=== PATIENT | male | born 1960 | race Caucasian/White ===

== ENCOUNTER 2021-06-20 17:47 | Inpatient (IN) ==
[~2021-06-20 17:47] MED LIST: NICOTINE 14 MG/24 HR PATCH TD SCH
[2021-06-20] MEDS ORDERED: MoRPHine SULFATE 4 MG/ML 1 ML CARP\\VIAL IV STA ×3 (18:02→21:09)
[2021-06-20] MEDS ORDERED: ONDANSETRON INJ 2 MG/ML 2 ML VIAL IV STA (18:02)
[2021-06-20] MEDS ORDERED: SODIUM CHLORIDE 0.9% 1000ML 1,000 ML IV STA (18:02)
[2021-06-20] MEDS ORDERED: KETOROLAC TROMETHAMINE 15 MG/ML VIAL IV STA (18:02)
--- NOTE | 2021-06-20 18:06 | Emergency Department Note ---
Impression & Plan Renal colic on left side, SARABJIT (acute kidney injury) ED Provider Note Provider: Reddy Hawk MD DATE OF SERVICE: 06/20/2021 CHIEF COMPLAINT: kidney stone, not urinating HISTORY OF PRESENT ILLNESS: Patient is a 60-year-old gentleman history of hypertension and prior kidney stone presenting here today reporting that he was diagnosed with a left-sided kidney stone yesterday. At home has had a fair amount of nausea as well as some pain in the left lower black region continue. CT feels a bit bloated in the upper abdomen like he is not making a good amount of urine although he has been drinking. No fevers reported or other trauma. No significant anterior abdominal pain or suprapubic fullness reported. Patient does not report any gross hematuria. No Tylenol or NSAID today but took oxycodone 3 minutes prior to arrival with improvement of his pain. REVIEW OF SYSTEMS: A total of 10 review of systems was obtained and negative except as stated above in the HPI. PAST MEDICAL HISTORY: As noted above SOCIAL HISTORY: Lives at home, denies currently smoking PHYSICAL EXAM: GENERAL: alert and oriented in no acute distress on stretcher Head: normocephalic and atraumatic EYES: No injection, discharge or icterus. NECK: Trachea midline. LUNGS: Airway patent. No retractions. Breath sounds clear HEART: Regular rate and rhythm. No chest wall tenderness ABDOMEN: Soft and non-tender, without guarding or rebound. SKIN: Acyanotic, warm, dry, without rashes EXTREMITIES: Without swelling, tenderness or deformity NEUROLOGICAL: No focal deficits. No aphasia. No facial droop or slurred speech. Ambulatory. CONTINUOUS CARDIAC MONITORING: was ordered and showed a heart rate of 70s-90s bpm in normal sinus rhythm PDMP was checked without noted issue. Patient's laboratory studies and imaging reviewed. Differential includes Renal colic, UTI, appendicitis, diverticulitis, mesenteric ischemia, aortic pathology, infections, inflammatory bowel disease, PUD, biliary pathology, as well as other pathologies. IMPRESSION/MEDICAL DECISION MAKING: Evaluation 5 mm left-sided kidney stone yesterday. Patient complains of decreased urine output and fullness the abdomen probably upper however. Patient does not appear toxic. Given some antiemetics as well as additional pain medication here. Will complete ultrasound to look for any signs of urinary retention or other findings concerning for bilateral hydronephrosis. Basic labs were sent. Labs here with slightly increased leukocytosis and slightly worsened hyponatremia. Renal function also appears to have a slightly increased elevate creatinine 1.59. No evidence of hepatitis or pancreatitis based on labs. No severe BUN elevation. Ultrasound report moderate left hydronephrosis but no right-sided hydronephrosis. Patient required additional IV morphine for pain control. Urine sample not indicative of infection. We will hold off on antibiotics at this point. Given his significant pain however as well as the slightly worsened renal function believe further observation here overnight for possible urological consultation if continued symptoms or worsening renal function tomorrow would be reasonable. Hospitalist was contacted. Urology was consulted. DIAGNOSIS: Left-sided kidney stone, SARABJIT DISPOSITION: Hospitalist will evaluate Patient was agreeable with this plan. Past Med/Surg History Medical History High cholesterol HTN (hypertension), benign Surgical History History of lumbar fusion Family History Mother Hypertension Father Heart disease Social History Smoking Status: Heavy tobacco smoker Tobacco Type: Cigarettes Do You Dip or Chew Tobacco: No; Tobacco Cessation Education Requested by Patient: No Hx Alcohol Use: Yes Alcohol type: hard liquor Hx Substance Use: No Preferred Language: Irish Communication Ability: Effective Visual Impairment: No Limitations Hearing Ability: Normal Cultural Historian Required: No Beliefs That Will Affect Care: None marital status: Current Living Situation: Alone current occupational status: employed current occupation: [employer] Feels Safe at Home: Yes Safety Concerns: Feels Safe At This Time Assistive Devices: Glasses Assistive Devices Comment: reading glasses Allergies Allergies Allergy/AdvReac Type Severity Reaction Status Date / Time No Known Allergies Allergy Verified 06/20/21 18:13 Home Meds Home Medications Medication Instructions Recorded Confirmed atorvastatin 20 mg tablet 20 mg PO DAILY 11/17/20 06/20/21 lisinopril 10 1 tab PO DAILY 11/17/20 06/20/21 mg-hydrochlorothiazide 12.5 mg tablet escitalopram oxalate 10 mg tablet 10 mg PO QAM 06/20/21 06/20/21 Previous Rx's Medication Instructions Recorded oxycodone 5 mg tablet 5 mg PO Q6 PRN #12 tab 06/19/21 tamsulosin 0.4 mg capsule (Flomax) 0.4 mg PO DAILY #10 cap 06/19/21 Results & Data (ED) Vital Signs Vital Signs - 24 hr 06/20/21 17:51 06/20/21 18:33 Temperature 36.6 C Temperature Source Temporal Artery Scan Pulse Rate 79 Pulse Rate [Apical] 67 Respiratory Rate 20 18 Respiratory Effort / Characteristics Non-Labored Spontaneous Non-Labored Spontaneous Respiratory Depth Normal Normal Respiratory Pattern Regular Blood Pressure 107/69 Blood Pressure [Right Arm] 117/76 Blood Pressure Mean 81 Blood Pressure Mean [Right Arm] 89 Blood Pressure Position [Right Arm] Sitting Pulse Oximetry 94 92 Oxygen Delivery Method Room Air Room Air Sepsis Recent Fever Within 48 Hours No Sepsis New/Unexplained Change in Mental Status No Sepsis Action Taken by Nursing No Action Required Laboratory Data Result diagrams: 06/20/21 18:28 06/20/21 23:33 Lab Results 06/20/21 06/20/21 06/20/21 Range/Units 18:28 18:28 18:28 WBC 14.72 H (4.8-10.8) K/uL RBC 5.35 (4.7-6.1) M/uL Hgb 15.5 (14.0-18.0) g/dL Hct 44.7 (42-52) % MCV 83.6 (80-100) fL MCH 29.0 (25-34) pg MCHC 34.7 (32-36) g/dL RDW Std Deviation 46.3 (36.4-46.3) fL RDW Coeff of Sandro 15.2 H (11.5-14.5) % Plt Count 224 (130-400) K/uL MPV 11.1 H (7.4-10.4) fL Immature Gran % (Auto) 0.2 % Neut % (Auto) 81.2 % Lymph % (Auto) 10.4 % Ponce % (Auto) 6.9 % Eos % (Auto) 1.2 % Baso % (Auto) 0.1 % Neut # (Auto) 11.94 H (1.4-6.5) K/uL Lymph # (Auto) 1.53 (1.2-3.4) K/uL Ponce # (Auto) 1.02 H (0.11-0.59) K/uL Eos # (Auto) 0.18 (0-0.5) K/uL Baso # (Auto) 0.02 (0-0.2) K/uL Immature Gran # (Auto) 0.03 H (0.00-0.02) K/uL Sodium 131 L (136-145) mmol/L Potassium 3.5 (3.5-5.1) mmol/L Chloride 97 L (98-107) mmol/L Carbon Dioxide 25 (21-32) mmol/L Anion Gap 9 (3-11) BUN 17 (6-23) mg/dl Creatinine 1.59 H D (0.6-1.4) mg/dl Est Cr Clr Drug Dosing 65.9 ml/min Est GFR ( Amer) 54.6 ml/min Est GFR (Non-Af Amer) 47.2 ml/min BUN/Creatinine Ratio 10.7 (10-20) Glucose 106 H (70-99(Fasting)) mg/dl Osmolality (280-300) mOsm/kg Calcium 9.0 (8.5-10.1) mg/dl Magnesium (1.7-2.4) mg/dl Total Bilirubin 0.9 (0.2-1.0) mg/dl AST 22 (13-39) U/L ALT 19 (7-52) U/L Alkaline Phosphatase 71 (34-104) U/L Total Creatine Kinase (30-223) U/L Total Protein 7.1 (6.0-8.3) gm/dl Albumin 4.1 (3.4-5.0) gm/dl Globulin 3.0 (2.5-4.0) gm/dl Albumin/Globulin Ratio 1.4 (0.9-2) Lipase 37 (11-82) U/L Procalcitonin (0-0.5) ng/ml TSH (0.300-4.500) uIu/ml Urine Color Urine Appearance (Clear) Urine pH (4.5-7.5) Ur Specific [place] (1.000-1.030) Urine Protein (Negative) Urine Glucose (UA) (Negative) Urine Ketones (Negative) Urine Blood (Negative) Urine Nitrite (Negative) Urine Bilirubin (Negative) Urine Urobilinogen (Negative) Ur Leukocyte Esterase (Negative) SARS-CoV-2, RNA, NAAT NEGATIVE (NEGATIVE) 06/20/21 06/20/21 06/20/21 Range/Units 18:28 18:28 18:28 WBC (4.8-10.8) K/uL RBC (4.7-6.1) M/uL Hgb (14.0-18.0) g/dL Hct (42-52) % MCV (80-100) fL MCH (25-34) pg MCHC (32-36) g/dL RDW Std Deviation (36.4-46.3) fL RDW Coeff of Sandro (11.5-14.5) % Plt Count (130-400) K/uL MPV (7.4-10.4) fL Immature Gran % (Auto) % Neut % (Auto) % Lymph % (Auto) % [place]once % (Auto) % Eos % (Auto) % Baso % (Auto) % Neut # (Auto) (1.4-6.5) K/uL Lymph # (Auto) (1.2-3.4) K/uL Ponce # (Auto) (0.11-0.59) K/uL Eos # (Auto) (0-0.5) K/uL Baso # (Auto) (0-0.2) K/uL Immature Gran # (Auto) (0.00-0.02) K/uL Sodium (136-145) mmol/L Potassium (3.5-5.1) mmol/L Chloride (98-107) mmol/L Carbon Dioxide (21-32) mmol/L Anion Gap (3-11) BUN (6-23) mg/dl Creatinine (0.6-1.4) mg/dl Est Cr Clr Drug Dosing ml/min Est GFR ( Amer) ml/min Est GFR (Non-Af Amer) ml/min BUN/Creatinine Ratio (10-20) Glucose (70-99(Fasting)) mg/dl Osmolality 276 L (280-300) mOsm/kg Calcium (8.5-10.1) mg/dl Magnesium 1.6 L (1.7-2.4) mg/dl Total Bilirubin (0.2-1.0) mg/dl AST (13-39) U/L ALT (7-52) U/L Alkaline Phosphatase (34-104) U/L Total Creatine Kinase 162 (30-223) U/L Total Protein (6.0-8.3) gm/dl Albumin (3.4-5.0) gm/dl Globulin (2.5-4.0) gm/dl Albumin/Globulin Ratio (0.9-2) Lipase (11-82) U/L Procalcitonin (0-0.5) ng/ml TSH 0.940 (0.300-4.500) uIu/ml Urine Color Urine Appearance (Clear) Urine pH (4.5-7.5) Ur Specific [place] (1.000-1.030) Urine Protein (Negative) Urine Glucose (UA) (Negative) Urine Ketones (Negative) Urine Blood (Negative) Urine Nitrite (Negative) Urine Bilirubin (Negative) Urine Urobilinogen (Negative) Ur Leukocyte Esterase (Negative) SARS-CoV-2, RNA, NAAT (NEGATIVE) 06/20/21 06/20/21 Range/Units 18:28 19:48 WBC (4.8-10.8) K/uL RBC (4.7-6.1) M/uL Hgb (14.0-18.0) g/dL Hct (42-52) % MCV (80-100) fL MCH (25-34) pg MCHC (32-36) g/dL RDW Std Deviation (36.4-46.3) fL RDW Coeff of Sandro (11.5-14.5) % Plt Count (130-400) K/uL MPV (7.4-10.4) fL Immature Gran % (Auto) % Neut % (Auto) % Lymph % (Auto) % [place]once % (Auto) % Eos % (Auto) % Baso % (Auto) % Neut # (Auto) (1.4-6.5) K/uL Lymph # (Auto) (1.2-3.4) K/uL [place] # (Auto) (0.11-0.59) K/uL Eos # (Auto) (0-0.5) K/uL Baso # (Auto) (0-0.2) K/uL Immature Gran # (Auto) (0.00-0.02) K/uL Sodium (136-145) mmol/L Potassium (3.5-5.1) mmol/L Chloride (98-107) mmol/L Carbon Dioxide (21-32) mmol/L Anion Gap (3-11) BUN (6-23) mg/dl Creatinine (0.6-1.4) mg/dl Est Cr Clr Drug Dosing ml/min Est GFR ( Amer) ml/min Est GFR (Non-Af Amer) ml/min BUN/Creatinine Ratio (10-20) Glucose (70-99(Fasting)) mg/dl Osmolality (280-300) mOsm/kg Calcium (8.5-10.1) mg/dl Magnesium (1.7-2.4) mg/dl Total Bilirubin (0.2-1.0) mg/dl AST (13-39) U/L ALT (7-52) U/L Alkaline Phosphatase (34-104) U/L Total Creatine Kinase (30-223) U/L Total Protein (6.0-8.3) gm/dl Albumin (3.4-5.0) gm/dl Globulin (2.5-4.0) gm/dl Albumin/Globulin Ratio (0.9-2) Lipase (11-82) U/L Procalcitonin 0.12 (0-0.5) ng/ml TSH (0.300-4.500) uIu/ml Urine Color Yellow Urine Appearance Clear (Clear) Urine pH 5.0 (4.5-7.5) Ur Specific [place] 1.019 (1.000-1.030) Urine Protein Negative (Negative) Urine Glucose (UA) Negative (Negative) Urine Ketones Trace H (Negative) Urine Blood Negative (Negative) Urine Nitrite Negative (Negative) Urine Bilirubin Negative (Negative) Urine Urobilinogen Negative (Negative) Ur Leukocyte Esterase Negative (Negative) SARS-CoV-2, RNA, NAAT (NEGATIVE) Administered Medications Heparin Sodium (Porcine) (Heparin Sod 5,000 Unit/0.5 Ml Vial) 5,000 units SQ Q8 SHARI Stop: 07/20/21 22:48 Last Admin: 06/21/21 00:03 Dose: 5,000 units Documented by: [id number] Hydromorphone HCl (Hydromorphone Inj 1 Mg/Ml Syringe) 1 mg IV Q4H PRN PRN Reason: Pain Stop: 07/04/21 21:47 Last Admin: 06/20/21 22:06 Dose: 1 mg Documented by: [id number] Magnesium Sulfate/Dextrose (Magnesium Sulfate / D5w) 1 gm in 100 mls @ 50 mls/hr IV ONE ONE Stop: 06/21/21 01:44 Last Admin: 06/20/21 23:59 Dose: 50 mls/hr Documented by: [id number] Lorazepam (Lorazepam 2 Mg/1 Ml Vial) 0.5 mg IV Q4H PRN PRN Reason: Anxiety Stop: 07/20/21 21:47 Last Admin: 06/21/21 00:17 Dose: 0.5 mg Documented by: [id number] Discontinued Medications Sodium Chloride (Nss 1000ml) 1,000 mls @ 999 mls/hr IV .Q1H1M STA Stop: 06/20/21 19:02 Last Infusion: 06/20/21 20:13 Dose: 0 mls/hr Documented by: [id number] Admin: 06/20/21 18:19 Dose: 999 mls/hr Documented by: [id number] Ketorolac Tromethamine (Ketorolac Tromethamine 15 Mg/Ml Vial) 10 mg IV NOW STA Stop: 06/20/21 18:03 Last Admin: 06/20/21 18:20 Dose: 10 mg Documented by: [id number] Morphine Sulfate (Morphine Sulfate 4 Mg/Ml 1 Ml Carp\Vial) 4 mg IV NOW STA Stop: 06/20/21 18:03 Last Admin: 06/20/21 18:24 Dose: 4 mg Documented by: [id number] Morphine Sulfate (Morphine Sulfate 4 Mg/Ml 1 Ml Carp\Vial) 4 mg IV NOW STA Stop: 06/20/21 19:48 Last Admin: 06/20/21 19:55 Dose: 4 mg Documented by: [id number] Morphine Sulfate (Morphine Sulfate 4 Mg/Ml 1 Ml Carp\Vial) 4 mg IV NOW STA Stop: 06/20/21 21:10 Last Admin: 06/20/21 21:15 Dose: 4 mg Documented by: [id number] Nicotine (Nicotine 14 Mg/24 Hr Patch) 14 mg TD ONE STA Stop: 06/20/21 21:45 Last Admin: 06/21/21 00:00 Dose: 14 mg Documented by: [id number] Ondansetron HCl (Ondansetron Inj 2 Mg/Ml 2 Ml Vial) 4 mg IV NOW STA Stop: 06/20/21 18:03 Last Admin: 06/20/21 18:19 Dose: 4 mg Documented by: [id number] Imaging Data Radiologist's Impression: Renal Ultrasound 06/20/21 18:02 ULTRASOUND KIDNEYS AND BLADDER CLINICAL HISTORY: Left ureteral stone. COMPARISON STUDY: Abdominal CT dated 06/19/2021 TECHNIQUE: Real-time, grayscale, and color flow sonography of the kidneys and bladder is performed. Images are reviewed in the transverse and longitudinal planes. FINDINGS: Kidneys: The kidneys are normal in size and echotexture. The right kidney measures 13.4 cm in length and the left kidney measures 14.0 cm in length. There is mild to moderate left-sided hydronephrosis. No hydronephrosis is seen on the right. A small nonobstructing calculus is seen in the left lower pole. There is no sonographic evidence of contour deforming renal mass lesion. No perinephric fluid is identified. Bladder: The prostate gland is mildly enlarged and heterogeneous. The bladder wall appears mildly thickened and trabeculated suggest chronic outlet obstruction. Ureteral jets were not seen. Upper abdomen: Survey images of the liver show hepatomegaly and hepatic steatosis IMPRESSION: 1. There is mild to moderate left hydronephrosis. The patient's known obstructing left ureteral stone was not seen by ultrasound. 2. A nonobstructing stone is seen in the left lower pole. 3. There is no right-sided hydronephrosis ACT 112: Negative or not required by law. Electronically signed by: Christ Allred M.D. 06/20/2021 7:58 PM Discharge Plan Visit Data Chief Complaint: Kidney Stone Stated Complaint: KIDNEY STONE ED Provider: Reddy Hawk Discharge Problem: Renal colic on left side, SARABJIT (acute kidney injury) Patient Disposition: Admitted As Inpatient Discharge Instructions Interventions: ED Discharge Assessment Last Done: 06/20/21 22:26
[2021-06-20 18:41] LABS: Basophils # (auto) 0.02 K/uL (0-0.2); Basophils % (auto) 0.1 %; Eosinophils # (auto) 0.18 K/uL (0-0.5); Eosinophils % (auto) 1.2 %; Hematocrit (blood only) 44.7 % (42-52); Hemoglobin 15.5 g/dL (14.0-18.0); Immature Granulocytes # (auto) 0.03 K/uL (0.00-0.02); Immature Granulocytes % (auto) 0.2 %; Lymphocytes # (auto) 1.53 K/uL (1.2-3.4); Lymphocytes % (auto) 10.4 %; Mean Corpuscular Hgb Conc 34.7 g/dL (32-36); Mean Corpuscular Volume 83.6 fL (80-100); Mean Platelet Volume 11.1 fL (7.4-10.4); Monocytes # (auto) 1.02 K/uL (0.11-0.59); Monocytes % (auto) 6.9 %; Neutrophils # (auto) 11.94 K/uL (1.4-6.5); Neutrophils % (auto) 81.2 %; Platelet Count 224 K/uL (130-400); RDW Coefficient of Variation 15.2 % (11.5-14.5); RDW Standard Deviation 46.3 fL (36.4-46.3); Red Blood Count 5.35 M/uL (4.7-6.1); White Blood Count 14.72 K/uL (4.8-10.8)
[2021-06-20 19:22] LABS: Albumin Globulin Ratio 1.4 (0.9-2); Albumin Level 4.1 gm/dl (3.4-5.0); BUN Creatinine Ratio 10.7 (10-20); Bilirubin,Total 0.9 mg/dl (0.2-1.0); Creatinine Clr Calc Pharmacy 65.9 ml/min; Est GFR (African American) 54.6 ml/min; Est GFR (Non-African American) 47.2 ml/min; Potassium 3.5 mmol/L (3.5-5.1); Total Protein 7.1 gm/dl (6.0-8.3)
[2021-06-20 19:56] LABS: Appearance Urine Clear (Clear); Bilirubin Urine Negative (Negative); Blood Urine Negative (Negative); Color Urine Yellow; Glucose Urine UA Negative (Negative); Ketones Urine Trace (Negative); Leukocyte Esterase Urine Negative (Negative); Nitrite Urine Negative (Negative); Protein Urine Negative (Negative); Specific Gravity Urine 1.019 (1.000-1.030); Urobilinogen Urine Negative (Negative)
--- NOTE | 2021-06-20 19:59 | Ultrasound Report ---
ULTRASOUND KIDNEYS AND BLADDER CLINICAL HISTORY: Left ureteral stone. COMPARISON STUDY: Abdominal CT dated 06/19/2021 TECHNIQUE: Real-time, grayscale, and color flow sonography of the kidneys and bladder is performed. I mages are reviewed in the transverse and longitudinal planes. FINDINGS: Kidneys: The kidneys are normal in size and echotexture. The right kidney measures 13.4 cm in length and the left kidney measures 14.0 cm in length. There is mild to moderate left-sided hydronephrosis. No hydronephrosis is seen on the right. A small nonobstructing calculus is seen in the left lower mallorie e. There is no sonographic evidence of contour deforming renal mass lesion. No perinephric fluid is i dentified. Bladder: The prostate gland is mildly enlarged and heterogeneous. The bladder wall appears mildly thi ckened and trabeculated suggest chronic outlet obstruction. Ureteral jets were not seen. Upper abdomen: Survey images of the liver show hepatomegaly and hepatic steatosis IMPRESSION: 1. There is mild to moderate left hydronephrosis. The patient's known obstructing left ureteral stone was not seen by ultrasound. 2. A nonobstructing stone is seen in the left lower pole. 3. There is no right-sided hydronephrosis ACT 112: Negative or not required by law. Electronically signed by: Christ Allred M.D. 06/20/2021 7:58 PM
--- NOTE | 2021-06-20 20:37 | Urology Consultation ---
Date of Consultation June 20, 2021 Assessment & Plan (1) Nephrolithiasis: Due to the intractable nature of the patient's pain he is being admitted on the hospitalist service. We recommend proceeding as follows: Provide analgesics Provide antiemetics Hydration measures with IV fluids to be employed Initiate Flomax for expulsive therapy As there is no evidence of UTI and I feel antibiotics are warranted at this time. The patient has evidence of acute kidney injury and therefore nephrotoxins should be avoided and hydration measures should be employed Follow serial labs Make the patient n.p.o. after midnight in the event that cystoscopy is required tomorrow History of Present Illness Reason for Consultation: Nephrolithiasis History of Present Illness This is a 52-year-old male who presented [facility] emergency department secondary to left-sided flank pain that began approximately 4 days ago. He notes the pain radiates to his left groin. He denies any nausea vomiting. He denies any fever shakes or chills. Patient does report history of kidney stones in 2010 which spontaneously passed and did not require surgical intervention. He has not any problems since his current episode. He denies any dysuria. He does note some urinary frequency and he denies any hematuriaPatient was seen in the [facility] emergency department yesterday where he had a CT scan of the abdomen and pelvis that showed a 5 mm obstructing kidney stone at the left ureteropelvic junction resulting in hydronephrosis. During this visit the patient had labs where his white blood cell count was elevated at 12.0. His BUN and creatinine were noted to be 14 and 1.0. Urinalysis at that time was not indicative of infection. Patient was able to be discharged home. The patient returned to the emergency department today due to intractable pain. Patient had repeat labs were CBC now shows a white blood cell count of 14.7. His hemoglobin, hematocrit, and platelet count are noted to be normal. Chemistry profile showed sodium is 131 with a potassium in normal range. His BUN is normal and his creatinine had risen to 1.5. Urinalysis was performed again was not indicative of infection. A Covid test is performed and was noted to be negative. Patient had a renal ultrasound during this current visit where he was noted to have mild to moderate left-sided hydronephrosis. Kidney stone seen on CAT scan was not visualized on this ultrasound study. At the time of my interview the patient was resting comfortably in bed and he w as in no distress.. Allergies Allergy/AdvReac Type Severity Reaction Status Date / Time No Known Allergies Allergy Verified 06/20/21 18:13 Home Medications Medication Instructions Recorded Confirmed Type atorvastatin 20 mg tablet 20 mg PO DAILY 11/17/20 06/20/21 History lisinopril 10 1 tab PO DAILY 11/17/20 06/20/21 History mg-hydrochlorothiazide 12.5 mg tablet oxycodone 5 mg tablet 5 mg PO Q6 PRN #12 tab 06/19/21 06/20/21 Rx tamsulosin 0.4 mg capsule (Flomax) 0.4 mg PO DAILY #10 cap 06/19/21 06/20/21 Rx escitalopram oxalate 10 mg tablet 10 mg PO QAM 06/20/21 06/20/21 History Patient History Medical History High cholesterol HTN (hypertension), benign Surgical History History of lumbar fusion Family History Mother Hypertension Father Heart disease Social History Smoking Status: Current every day smoker Tobacco Type: Cigarettes Hx Alcohol Use: No Hx Substance Use: No Preferred Language: [place] Communication Ability: Effective Visual Impairment: No Limitations Hearing Ability: Normal Beliefs That Will Affect Care: None marital status: Current Living Situation: Alone current occupational status: employed current occupation: [employer] Feels Safe at Home: Yes Review of Systems Constitutional: no fever and no chills Eyes: no diplopia Ear, Nose, Mouth, Throat: no ear pain Respiratory: no cough and no dyspnea Cardiovascular: no chest pain Gastrointestinal: no abdominal pain, no nausea and no vomiting Genitourinary: + as per Subjective / HPI Musculoskeletal: + back pain (Left flank) Integumentary: no rash Neurologic: no localized weakness Physical Exam Constitutional: well developed and well nourished; no acute distress Eyes: no conjunctival abnormality ENMT: Ears: no external ear abnormality Neck: trachea midline Respiratory: normal respiratory effort; no respiratory distress and no labored breathing Cardiovascular: Rate/Rhythm: regular rate and regular rhythm Gastrointestinal (Abdomen): Soft, nontender, nondistended Musculoskeletal: No calf tenderness Skin: no rashes Neurologic: moves all extremities Psychiatric: A+Ox3, euthymic affect Results & Data ([facility]) Vital Signs (Past 12 Hours) Vital Signs Temp Pulse Pulse Resp BP BP Pulse Ox 06/20/21 18:33 67 18 117/76 92 06/20/21 17:51 36.6 C 79 20 107/69 94 PG Care Time/CCT Total # of Minutes Spent Total Time Spent with Patient: Total time spent is greater than 50% in coordination of care (as documented) at patient's floor/unit and/or counseling patient: Coding Level of Care Code 50522 Inpt Consult Level 5 Diagnoses Nephrolithiasis N20.0
[2021-06-20] MEDS ORDERED: TAMSULOSIN HCL 0.4 MG CAP PO ONE (21:10)
--- NOTE | 2021-06-20 21:40 | History & Physical Report ---
Date of Service June 20, 2021 Assessment & Plan (1) SARABJIT (acute kidney injury): Plan: Secondary to obstructive uropathy History recurrent kidney stones Hyponatremia secondary to mild clinical dehydration, home diuretic Rx PVD status post surgery hypertension, stable hyperlipidemia on statin Rx Hyperglycemia likely prediabetes, hemoglobin A1c of 6 from February 2021 ongoing tobacco abuse. Medical telemetry for hyponatremia Careful correction of sodium Hyponatremia work-up Appropriate to hold home diuretic/THELMA inhibitor for now given kidney dysfunction Strain urine, continue Flomax Urology consult Re: Obstructive uropathy (Patient already evaluated by provider at the ER who recommends n.p.o. after midnight for possible cystoscopy if stone does not pass.) Nicotine patch DVT prophylaxis. Heparin subcu Full code Text document was generated using [employer] voice recognition software. It may contain grammatical or spelling errors. Kindly contact undersigned for clarification of any documentation item in question. History of Present Illness Chief Complaint: Kidney stone, left leg pain Primary Care Provider: Juice Strauss MD History obtained from patient and records. Medical history significant for PVD status post surgery, hypertension, hyperlipidemia, urolithiasis, ongoing tobacco abuse. Last confinement 2014 for atypical chest pain. 3 days ago, patient experience achy left flank pain reminiscent of kidney stone pain from 2013 with spontaneous passage at that time. Some nausea. No emesis. No hematuria. Patient consulted ER. CAT scan showed 5 mm obstructing stone left UPJ junction with mild left hydronephrosis. Patient discharged on Flomax and oxycodone prescription. Instructed to strain urine and to return to ER for worsening symptoms. Urology consult if patient does not pass stone spontaneously. Patient compliant with new prescriptions. This afternoon, achy left flank pain became intolerable. Some chills and dry heaving as per patient. Patient consulted ER for worsening symptoms. Medical History as above Surgical History : Back surgery, femoropopliteal bypass Family History : Kidney stones, heart disease Personal/Social history : Half pack daily, no EtOH intake, [employer] Allergies Allergy/AdvReac Type Severity Reaction Status Date / Time No Known Allergies Allergy Verified 06/20/21 18:13 Home Medications Medication Instructions Recorded Confirmed Type atorvastatin 20 mg tablet 20 mg PO DAILY 11/17/20 06/20/21 History lisinopril 10 1 tab PO DAILY 09/07/21 04/10/22 History mg-hydrochlorothiazide 12.5 mg tablet oxycodone 5 mg tablet 5 mg PO Q6 PRN #12 tab 06/19/21 06/20/21 Rx tamsulosin 0.4 mg capsule (Flomax) 0.4 mg PO DAILY #10 cap 06/19/21 06/20/21 Rx escitalopram oxalate 10 mg tablet 10 mg PO QAM 06/20/21 06/20/21 History Past Med/Surg History Medical History High cholesterol HTN (hypertension), benign Surgical History History of lumbar fusion Family History Mother Hypertension Father Heart disease Social History Smoking Status: Current every day smoker Tobacco Type: Cigarettes Hx Alcohol Use: No Hx Substance Use: No Preferred Language: Pashto Communication Ability: Effective Visual Impairment: No Limitations Hearing Ability: Normal Beliefs That Will Affect Care: None marital status: Current Living Situation: Alone current occupational status: employed current occupation: [employer] Feels Safe at Home: Yes Review of Systems Review of Systems: As per HPI, all 10 systems reviewed, all other ROS negative Physical Exam Physical Exam: GENERAL: Slightly uncomfortable, obese, pleasant, no respiratory distress SKIN: Normal color, warm HEENT: [place] palpebral conjunctivae, no ptosis, dry buccal mucosa NECK : Supple, short neck, no tenderness CHEST : CTA, no tenderness HEART : RRR, no obvious murmurs ABDOMEN: Some distention, nontender BACK : Left flank tenderness EXTREMITIES : Minimal LE swelling, no LE tenderness, healed surgical scar LLE, no other conspicuous deformities noted NEUROLOGIC : Coherent, no facial asymmetry, no other gross focality Results & Data Results & Data ([facility]) Vital Signs (Past 12 Hours) Vital Signs Temp Pulse Pulse Resp BP BP Pulse Ox 06/20/21 18:33 67 18 117/76 92 06/20/21 17:51 36.6 C 79 20 107/69 94 Laboratory Results Laboratory Results WBC 14.72 K/uL (4.8-10.8) H 06/20/21 18:28 RBC 5.35 M/uL (4.7-6.1) 06/20/21 18: Hgb 15.5 g/dL (14.0-18.0) 06/20/21: Hct 44.7 % (42-52) 06/20/21 18: MCV 83.6 fL (80-100) 06/20/21 18: MCH 29.0 pg (25-34) 06/20/21 MCHC 34.7 g/dL (32-36) 06/20/21 RDW Std Deviation 46.3 fL (36.4-46.3) 06/20/21 RDW Coeff of Sandro 15.2 % (11.5-14.5) H 06/20/21 Plt Count 224 K/uL (130-400) 06/20/21 MPV 11.1 fL (7.4-10.4) H 06/20/21: Immature Gran % (Auto) 0.2 % 06/20/21: Neut % (Auto) 81.2 % 06/20/21: Lymph % (Auto) 10.4 % 06/20/21: [place] % (Auto) 6.9 % 06/20/21: Eos % (Auto) 1.2 % 06/20/21: Baso % (Auto) 0.1 % 06/20/21: Neut # (Auto) 11.94 K/uL (1.4-6.5) H 06/20/21: Lymph # (Auto) 1.53 K/uL (1.2-3.4) 06/20/21: [place] # (Auto) 1.02 K/uL (0.11-0.59) H 06/20/21: Eos # (Auto) 0.18 K/uL (0-0.5) 06/20/21 18: Baso # (Auto) 0.02 K/uL (0-0.2) 06/20/21 18: Immature Gran # (Auto) 0.03 K/uL (0.00-0.02) H 06/20/21:28 Sodium 131 mmol/L (136-145) L 06/20/21 18:28 Potassium 3.5 mmol/L (3.5-5.1) 06/20/21 18:28 Chloride 97 mmol/L (98-107) L 06/20/21 18:28 Carbon Dioxide 25 mmol/L (21-32) 06/20/21 18:28 Anion Gap 9 (3-11) 06/20/21 18:28 BUN 17 mg/dl (6-23) 06/20/21 18:28 Creatinine 1.59 mg/dl (0.6-1.4) H D 06/20/21 18:28 Est Cr Clr Drug Dosing 65.9 ml/min 06/20/21 18:28 Est GFR ( Amer) 54.6 ml/min 06/20/21 18: Est GFR (Non-Af Amer) 47.2 ml/min 06/20/21 18:28 BUN/Creatinine Ratio 10.7 (10-20) 06/20/21 18:28 Glucose 106 mg/dl (70-99(Fasting)) H 06/20/21 18:28 Calcium 9.0 mg/dl (8.5-10.1) 06/20/21 18:28 Total Bilirubin 0.9 mg/dl (0.2-1.0) 06/20/21 18:28 AST 22 U/L (13-39) 06/20/21 18:28 ALT 19 U/L (7-52) 06/20/21 18:28 Alkaline Phosphatase 71 U/L (34-104) 06/20/21 18:28 Total Protein 7.1 gm/dl (6.0-8.3) 06/20/21 18:28 Albumin 4.1 gm/dl (3.4-5.0) 06/20/21 18:28 Globulin 3.0 gm/dl (2.5-4.0) 06/20/21 18:28 Albumin/Globulin Ratio 1.4 (0.9-2) 06/20/21 18:28 Lipase 37 U/L (11-82) 06/20/21 18:28 Urine Color Yellow 06/20/21 19:48 Urine Appearance Clear (Clear) 06/20/21 19:48 Urine pH 5.0 (4.5-7.5) 06/20/21 19:48 Ur Specific [place] 1.019 (1.000-1.030) 06/20/21 19:48 Urine Protein Negative (Negative) 06/20/21 19:48 Urine Glucose (UA) Negative (Negative) 06/20/21 19:48 Urine Ketones Trace (Negative) H 06/20/21 19:48 Urine Blood Negative (Negative) 06/20/21 19:48 Urine Nitrite Negative (Negative) 06/20/21 19:48 Urine Bilirubin Negative (Negative) 06/20/21 19:48 Urine Urobilinogen Negative (Negative) 06/20/21 19:48 Ur Leukocyte Esterase Negative (Negative) 06/20/21 19:48 SARS-CoV-2, RNA, NAAT NEGATIVE (NEGATIVE) 06/20/21 18:28 Impressions Renal Ultrasound 06/20/21 18:02 ULTRASOUND KIDNEYS AND BLADDER CLINICAL HISTORY: Left ureteral stone. COMPARISON STUDY: Abdominal CT dated 06/19/2021 TECHNIQUE: Real-time, grayscale, and color flow sonography of the kidneys and bladder is performed. Images are reviewed in the transverse and longitudinal planes. FINDINGS: Kidneys: The kidneys are normal in size and echotexture. The right kidney measures 13.4 cm in length and the left kidney measures 14.0 cm in length. There is mild to moderate left-sided hydronephrosis. No hydronephrosis is seen on the right. A small nonobstructing calculus is seen in the left lower pole. There is no sonographic evidence of contour deforming renal mass lesion. No perinephric fluid is identified. Bladder: The prostate gland is mildly enlarged and heterogeneous. The bladder wall appears mildly thickened and trabeculated suggest chronic outlet obstruction. Ureteral jets were not seen. Upper abdomen: Survey images of the liver show hepatomegaly and hepatic steatosis IMPRESSION: 1. There is mild to moderate left hydronephrosis. The patient's known obstructing left ureteral stone was not seen by ultrasound. 2. A nonobstructing stone is seen in the left lower pole. 3. There is no right-sided hydronephrosis ACT 112: Negative or not required by law. Electronically signed by: Christ Allred M.D. 06/20/2021 7:58 PM Diagnostic Findings Chest x-ray as per my interpretation: Atelectasis, elevated right hemidiaphragm, cardiomegaly how are you my friend the okay
[2021-06-20] MEDS ORDERED: NICOTINE 14 MG/24 HR PATCH TD STA (21:44)
[2021-06-20 21:48] LABS: Magnesium 1.6 mg/dl (1.7-2.4)
[2021-06-20] MEDS ORDERED: oxyCODONE HCL IR 5 MG TAB (IMMEDIATE RELEASE) PO PRN (21:48)
[2021-06-20] MEDS ORDERED: HYDROmorphone INJ 1 MG/ML SYRINGE IV PRN (21:48)
[2021-06-20] MEDS ORDERED: ACETAMINOPHEN 325 MG TAB PO PRN (21:48)
[2021-06-20] MEDS ORDERED: LORazepam 2 MG/1 ML VIAL IV PRN (21:48)
[2021-06-20] MEDS ORDERED: PROMETHAZINE HCL 6.25 MG in SODIUM CHLORIDE 0.9% 50 ML IV STA (21:48)
[2021-06-20] MEDS ORDERED: MAGNESIUM SULFATE / D5W 1 GM/100 ML BAG IV ONE (23:45)
[2021-06-21] MEDS: HEPARIN SOD 5,000 UNIT/0.5 ML VIAL SQ SCH ×3 (00:03→13:03)
[2021-06-21] MEDS: SODIUM CHLORIDE 0.9% 1000ML 1,000 ML IV SCH ×2 (02:22→13:03)
--- NOTE | 2021-06-21 07:12 | XRay Report ---
XR chest 1V portable CLINICAL HISTORY: renla failure. Evaluate cardiopulmonary status COMPARISON STUDY: 03/27/2014 TECHNIQUE: 1 view of the chest FINDINGS: Single frontal view of the chest demonstrates the cardiomediastinal silhouette to be within normal li mits. There is evidence for mild central vascular congestion characteristic of fluid overload. The juana ngs are clear of alveolar opacities. There is no evidence for pleural effusion. There is no periphera l interstitial edema. There is no acute osseous pathology. IMPRESSION: 1. Mild central vascular congestion characteristic of fluid overload. ACT 112: Negative or not required by law. Electronically signed by: Sy Cortes M.D. 06/21/2021 7:11 AM
[2021-06-21 08:09] LABS: Basophils # (auto) 0.02 K/uL (0-0.2); Basophils % (auto) 0.2 %; Eosinophils % (auto) 2.3 %; Hematocrit (blood only) 45.1 % (42-52); Hemoglobin 15.1 g/dL (14.0-18.0); Immature Granulocytes # (auto) 0.02 K/uL (0.00-0.02); Immature Granulocytes % (auto) 0.2 %; Lymphocytes # (auto) 2.12 K/uL (1.2-3.4); Lymphocytes % (auto) 24.2 %; Mean Corpuscular Hemoglobin 28.3 pg (25-34); Mean Corpuscular Hgb Conc 33.5 g/dL (32-36); Mean Corpuscular Volume 84.6 fL (80-100); Mean Platelet Volume 11.6 fL (7.4-10.4); Monocytes # (auto) 0.75 K/uL (0.11-0.59); Monocytes % (auto) 8.6 %; Neutrophils # (auto) 5.65 K/uL (1.4-6.5); Neutrophils % (auto) 64.5 %; Platelet Count 226 K/uL (130-400); RDW Coefficient of Variation 15.1 % (11.5-14.5); RDW Standard Deviation 46.8 fL (36.4-46.3); Red Blood Count 5.33 M/uL (4.7-6.1); White Blood Count 8.76 K/uL (4.8-10.8)
[2021-06-21 08:28] LABS: BUN Creatinine Ratio 12.7 (10-20); Calcium 8.9 mg/dl (8.5-10.1); Creatinine Clr Calc Pharmacy 88.6 ml/min; Est GFR (African American) 78.4 ml/min; Est GFR (Non-African American) 67.6 ml/min; Potassium 3.5 mmol/L (3.5-5.1)
--- NOTE | 2021-06-21 08:42 | Urology Progress Note ---
Date of Service June 21, 2021 Assessment & Plan (1) Renal colic on left side: (2) Nephrolithiasis: Plan: 60yo M admitted with intractable left flank pain and SARABJIT. CT abdomen pelvis on 06/19 revealed a 5 mm obstructing stone at the left ureteropelvic junction resulti ng in mild left hydronephrosis. A renal ultrasound on 06/20 noted mild to moderate left hydronephrosis, however the stone seen on CT scan was not visualized on the ultrasound study. - Plan of care reviewed with Dr. Donaldson, on-call urologist. - Pt subjectively feeling much better since his arrival. No reported pain this morning. No stone passage noted. - Afebrile, non-toxic appearing, hemodynamically stable. - Labs reviewed - Wbc down from 14.72-8.76 today, Creatinine 1.18 today (1.59 yesterday). - Urinalysis 06/19 and 06/20 not indicative of infection. - KUB this morning notable for a calcified stone in the left proximal ureter, similar in appearance to prior CT. - Discussed options for acute stone management with cysto, stent placement, possible stone treatment. Discussed outpatient ESWL. - Stone free rates were also discussed as well as possibility of multiple procedures. Ureteral stents were discussed as well as post-operative issues and pain management. Risks/benefits of all procedures discussed. - Given he is currently asymptomatic, patient prefers conservative measures and outpatient follow-up to arrange ESWL. - No acute intervention planned today. - Ok to have a diet back. - Reviewed in detail signs/symptoms that would warrant return to the hospital, patient verbalized an understanding. - Recommend home with Tamsulosin and prn pain control. - Encouraged pt to stay well hydrated and to strain all urine. - Ok for discharge from perspective. - Will follow-up outpatient with Urology service to arrange elective procedure. - Patient agreeable to above plan, all questions were answered. Admission and Anticipated Discharge Date Admission Date: June 20, 2021 Subjective Pt examined at bedside this AM. Awake, sitting up in bed on arrival. Appears comfortable, no acute distress. Reports no pain since arriving on the floor last night. Denies back, flank, and abdominal pain at present. No fevers or chills. Denies nausea or vomiting. Voiding without issue. No hematuria or dysuria. Feels he is emptying his bladder. Straining urine, no stone passage noted. Overall feeling good and eager to go home. Review of Systems Constitutional: as per Subjective / HPI Gastrointestinal: as per Subjective / HPI Genitourinary: + as per Subjective / HPI Physical Exam Constitutional: well developed and well nourished; no acute distress and not ill appearing Respiratory: normal respiratory effort and able to speak in complete sentences; no labored breathing and no audible wheezes Gastrointestinal (Abdomen): Inspection/Auscultation: abdomen normal to inspection; abdomen not distended Percussion/Palpation: abdomen soft; abdomen nontender Musculoskeletal: Head/Neck/Chest: normocephalic Skin: No visible rashes or lesions to exposed skin areas Neurologic: moves all extremities and awake Psychiatric: Orientation: alert, oriented x 3 and cooperative Genitourinary: no CVA tenderness Results & Data ([facility]) Vital Signs (Past 12 Hours) Vital Signs Temp Pulse Pulse Resp BP Pulse Ox 06/21/21 04:00 36.7 C 74 138/73 96 06/20/21 23:11 83 06/20/21 22:35 36.9 C 85 20 145/86 H 94 06/20/21 22:26 82 20 98 06/20/21 22:00 80 22 146/72 H 96 PG Care Time/CCT Total # of Minutes Spent Total Time Spent with Patient: Total time spent is greater than 50% in coordination of care (as documented) at patient's floor/unit and/or counseling patient: Coding Level of Care Code 52969 Subseq Hosp Care Lvl 2 Diagnoses Renal colic on left side N23 Nephrolithiasis N20.0
[2021-06-21] MEDS ORDERED: ATORVASTATIN 20 MG TAB PO SCH (09:00)
[2021-06-21] MEDS ORDERED: ESCITALOPRAM OXALATE 10 MG TAB PO SCH (09:00)
[2021-06-21] MEDS ORDERED: TAMSULOSIN HCL 0.4 MG CAP PO SCH (09:00)
[2021-06-21] MEDS ORDERED: NICOTINE 14 MG/24 HR PATCH TD SCH (09:00)
--- NOTE | 2021-06-21 09:11 | XRay Report ---
XR KUB/Abdomen 1 view CLINICAL HISTORY: left ureteral stone TECHNIQUE: 1 view of the abdomen was obtained. Comparison: Comparison is made to CT abdomen pelvis 06/19/2021 FINDINGS: A calcification is seen in the left proximal ureter measuring approximately 7 mm in length. Posterior fixation hardware is seen. The bowel gas pattern is nonobstructive. A moderate amount of stool is no braulio within the large bowel. IMPRESSION: Calcified stone in the left proximal ureter, similar in appearance to prior CT. ACT 112: Negative or not required by law. Electronically signed by: Gilberto Phelps M.D. 06/21/2021 9:09 AM
== END 2021-06-21 13:17 | disposition home or self-care (01) | DRG 694 ==
LOC: ED 17:47 → 2W 21:45

== ENCOUNTER 2022-01-11 14:06 | Observation (INO) ==
[2022-01-11 16:28] LABS: Basophils % (auto) 0.7 %; Eosinophils # (auto) 0.24 K/uL (0-0.50); Eosinophils % (auto) 1.6 %; Hematocrit (blood only) 48.1 % (40.1-51.0); Immature Granulocytes # (auto) 0.07 K/uL (0.00-0.02); Immature Granulocytes % (auto) 0.5 %; Lymphocytes # (auto) 2.54 K/uL (1.2-3.4); Mean Corpuscular Hemoglobin 28.1 pg (25.0-34.0); Mean Corpuscular Hgb Conc 33.3 g/dL (32.0-36.0); Mean Corpuscular Volume 84.5 fL (80.0-100.0); Mean Platelet Volume 10.9 fL (9.4-12.4); Monocytes # (auto) 1.18 K/uL (0.24-0.82); Monocytes % (auto) 7.9 %; Neutrophils # (auto) 10.78 K/uL (1.4-6.5); Neutrophils % (auto) 72.3 %; Platelet Count 311 K/uL (130-400); RDW Coefficient of Variation 14.4 % (11.5-14.5); RDW Standard Deviation 43.8 fL (36.4-46.3); Red Blood Count 5.69 M/uL (4.63-6.08); White Blood Count 14.91 K/ul (4.8-10.8)
[2022-01-11 16:40] LABS: Partial Thromboplastin Ratio 1.1; Partial Thromboplastin Time 30.1 Seconds (21.0-31.0); Prothrombin Time 10.6 Seconds (9.0-12.0)
--- NOTE | 2022-01-11 16:47 | XRay Report ---
XR chest 1V portable CLINICAL HISTORY: SOB TECHNIQUE: Single frontal radiograph of the chest was obtained. Comparison: Comparison is made to chest radiograph 06/20/2021 FINDINGS: Exam is limited by underpenetration. Cardiomegaly is noted. The lungs are clear. No evidence of pleur al effusion or pneumothorax. IMPRESSION: No acute chest disease. Cardiomegaly is noted. No evidence of pneumonia. ACT 112: Negative or not required by law. Electronically signed by: Gilberto Phelps M.D. 01/11/2022 4:46 PM
[2022-01-11 16:56] LABS: Albumin Globulin Ratio 1.2 (0.9-2); Albumin Level 4.5 gm/dl (3.4-5.0); Bilirubin,Total 0.6 mg/dl (0.2-1.0); Calcium 10.6 mg/dl (8.5-10.1); Creatinine Clr Calc Pharmacy 98.8 ml/min; Est GFR (African American) 88.6 ml/min; Est GFR (Non-African American) 76.4 ml/min; Globulin 3.7 gm/dl (2.5-4.0); Magnesium 1.9 mg/dl (1.7-2.4); Total Protein 8.2 gm/dl (6.0-8.3)
--- NOTE | 2022-01-11 18:32 | Electrocardiogram Report ---
Test Reason : Blood Pressure : / mmHG Vent. Rate : 106 BPM Atrial Rate : 106 BPM P-R Int : 180 ms QRS Dur : 130 ms QT Int : 356 ms P-R-T Axes : 050 -58 027 degrees QTc Int : 472 ms Sinus tachycardia Left axis deviation Right bundle branch block Abnormal ECG When compared with ECG of 27-MAR-2014 21:26, Premature atrial complexes are no longer Present Vent. rate has increased BY 40 BPM Right bundle branch block is now Present Confirmed by Lionel Montiel ([id number]) on 01/11/2022 6:31:58 PM Referred By: Confirmed By:Hill Montiel
[2022-01-11] MEDS ORDERED: ALBUT/IPRATROP 3MG/0.5MG NEB 3 ML VIAL NEB STA ×3 (19:09→21:47)
[2022-01-11] MEDS: SODIUM CHLORIDE 0.9% 1000ML 1,000 ML IV SCH (19:38)
[2022-01-11] MEDS ORDERED: OPTIRAY 320 500ml IV ONE (20:05)
--- NOTE | 2022-01-11 20:47 | CT Scan Report ---
CHEST CTA for PULMONARY ARTERIES CT DOSE: 911.47 mGy.cm HISTORY: Shortness of breath. TECHNIQUE: Multiaxial CT images of the chest were performed following the intravenous administration of contrast to evaluate the pulmonary arteries. Maximal intensity projection images were also obtaine d. A dose lowering technique was utilized adhering to the principles of ALARA. COMPARISON STUDY: Chest CTA 03/28/2014. FINDINGS: The visualized spleen and adrenal glands unremarkable. Hepatic steatosis. The thyroid gland enhances normally. No mediastinal or hilar lymphadenopathy. The heart is normal in size. No pleural or pericardial effusions. Normal esophagus. Normal caliber thoracic aorta with no evidence for a diss ection. No filling defects within the pulmonary arteries to suggest a pulmonary embolus. No acute fra ctures within the visualized osseous structures. No pneumothorax. Mild respiratory motion artifact. T he central airways are patent. No focal lung consolidations to suggest a pneumonia. IMPRESSION: No evidence for pulmonary embolus. ACT 112: Negative or not required by law. Electronically signed by: Toni Serra M.D. 01/11/2022 8:45 PM
[2022-01-11 21:24] LABS: Adenovirus PCR Not Detected (NotDetected); Bordetella parapertussis PCR Not Detected (NotDetected); Bordetella pertussis PCR Not Detected (NotDetected); Chlamydia pneumoniae PCR Not Detected (NotDetected); Coronavirus 229E PCR Not Detected (NotDetected); Coronavirus CoV-2 (COVID19)PCR Not Detected (NotDetected); Coronavirus HKU1 PCR Not Detected (NotDetected); Coronavirus NL63 PCR Not Detected (NotDetected); Coronavirus OC43PCR Not Detected (NotDetected); Human Metapneumovirus PCR Not Detected (NotDetected); Influenza A PCR Not Detected (NotDetected); Influenza B PCR Not Detected (NotDetected); Mycoplasma pneumoniae PCR Not Detected (NotDetected); Parainfluenza Virus 1 PCR Not Detected (NotDetected); Parainfluenza Virus 2 PCR Not Detected (NotDetected); Parainfluenza Virus 3 PCR Not Detected (NotDetected); Parainfluenza Virus 4 PCR Not Detected (NotDetected); Respiratory Syncytial VirusPCR Not Detected (NotDetected); Rhinovirus/Enterovirus PCR Not Detected (NotDetected)
--- NOTE | 2022-01-11 22:27 | Emergency Department Note ---
History of Present Illness General Chief complaint: Shortness of Breath/Dyspnea Stated complaint: SHORTNESS OF BREATH Time Seen by Provider: 01/11/22 18:51 Source: patient Mode of arrival: ambulatory Limitations: no limitations History of Present Illness Provider complaint: congestion, shortness of breath Onset (ago): month(s) 1 Maximum Pain Intensity: 5 This is a 61-year-old male presents emergency department due to concern for 1 months of cough, nasal congestion, and increased trouble breathing. Patient states he is unable to lay down and sleep and has had difficulty sleeping due to the cough and congestion. He states laying flat makes his breathing worse as does moderate exertion. He states this is kept him from being able to sleep adequately. He denies accompanying chest pain. He denies fevers or chills. He states and symptoms first began he was seen and started on amoxicillin. He states symptoms persisted following this so he went back and was given 5 days of prednisone, 1 week of doxycycline, and an inhaler. He states he had minimal improvement on those medications however once they stopped his symptoms worsened again. He finished those meds 1 week ago. Patient is a current smoker, approximately 1 pack/day. He has been smoking for 43 years. He denies any cardiac history. Home Medications Medication Instructions Recorded Confirmed Type atorvastatin 20 mg tablet 20 mg PO DAILY 11/17/20 01/11/22 History lisinopril 10 1 tab PO DAILY 11/17/20 01/11/22 History mg-hydrochlorothiazide 12.5 mg tablet escitalopram oxalate 10 mg tablet 10 mg PO QAM 06/20/21 01/11/22 History albuterol sulfate 90 mcg/actuation 2 puff inhalation Q4 PRN Shortness 01/11/22 01/11/22 History aerosol inhaler Of Breath Or Wheezing Allergies Allergy/AdvReac Type Severity Reaction Status Date / Time No Known Allergies Allergy Verified 01/11/22 19:18 Past Med/Surg History Medical History SARABJIT (acute kidney injury) High cholesterol HTN (hypertension), benign Renal colic on left side Surgical History History of lumbar fusion Family History Mother Hypertension Father Heart disease Social History Smoking Status: Current every day smoker Tobacco Type: Cigarettes Cigarettes Per Day: 1 pack; Tobacco Cessation Education Requested by Patient: No Hx Alcohol Use: Yes Alcohol type: hard liquor Hx Substance Use: No Preferred Language: Yoruba Communication Ability: Effective Visual Impairment: No Limitations Hearing Ability: Normal Order Booker Required: No Beliefs That Will Affect Care: None marital status: Current Living Situation: Alone current occupational status: employed current occupation: [employer] Other Information That Helps Us Care for You: No Feels Safe at Home: Yes Safety Concerns: Feels Safe At This Time Assistive Devices: None Review of Systems A total of 10 systems reviewed and were otherwise negative All systems reviewed & are unremarkable except as noted in HPI & below Physical Exam Vital Signs Vital Signs - 24 hr 01/11/22 14:25 01/11/22 18:43 01/11/22 18:47 Temperature 36.9 C Temperature Source Temporal Artery Scan Pulse Rate 102 H Pulse Rate [Exercises] Pulse Rate [Left] 91 H Pulse Rate [Recovery] Pulse Rate [Resting] Pulse Rhythm Regular Pulse Rhythm [Left] Regular Pulse Strength Normal Pulse Strength [Left] Normal Respiratory Rate 20 19 Respiratory Rate [Exercises] Respiratory Rate [Recovery] Respiratory Rate [Resting] Respiratory Effort / Characteristics Non-Labored Spontaneous Non-Labored Respiratory Depth Normal Normal Respiratory Pattern Regular Regular Blood Pressure 149/78 H Blood Pressure [Right Arm] 131/99 Blood Pressure Mean 101 Blood Pressure Mean [Right Arm] 109 Blood Pressure Position Sitting Blood Pressure Position [Right Arm] Sitting Pulse Oximetry 96 98 96 Pulse Oximetry [Exercises] Pulse Oximetry [Recovery] Pulse Oximetry [Resting] Oxygen Delivery Method Room Air Room Air Room Air Oxygen Flow Rate Sepsis Recent Fever Within 48 Hours No Sepsis New/Unexplained Change in Mental Status N/A Sepsis Action Taken by Nursing No Action Required 01/11/22 19:18 01/11/22 19:18 01/11/22 20:45 Temperature Temperature Source Pulse Rate Pulse Rate [Exercises] Pulse Rate [Left] 90 Pulse Rate [Recovery] Pulse Rate [Resting] Pulse Rhythm Pulse Rhythm [Left] Regular Pulse Strength Pulse Strength [Left] Normal Respiratory Rate 20 85 H Respiratory Rate [Exercises] Respiratory Rate [Recovery] Respiratory Rate [Resting] Respiratory Effort / Characteristics Non-Labored Spontaneous Non-Labored Spontaneous Respiratory Depth Normal Respiratory Pattern Regular Blood Pressure Blood Pressure [Right Arm] 131/78 Blood Pressure Mean Blood Pressure Mean [Right Arm] 95 Blood Pressure Position Blood Pressure Position [Right Arm] Semi-fowlers Pulse Oximetry 96 96 96 Pulse Oximetry [Exercises] Pulse Oximetry [Recovery] Pulse Oximetry [Resting] Oxygen Delivery Method Room Air Room Air Room Air Oxygen Flow Rate 0 Sepsis Recent Fever Within 48 Hours Sepsis New/Unexplained Change in Mental Status Sepsis Action Taken by Nursing 01/11/22 22:11 01/11/22 22:00 01/12/22 01:00 Temperature Temperature Source Pulse Rate Pulse Rate [Exercises] 105 H Pulse Rate [Left] 94 H 62 Pulse Rate [Recovery] 96 H Pulse Rate [Resting] 91 H Pulse Rhythm Pulse Rhythm [Left] Regular Regular Pulse Strength Pulse Strength [Left] Normal Normal Respiratory Rate 20 18 Respiratory Rate [Exercises] 20 Respiratory Rate [Recovery] 20 Respiratory Rate [Resting] 18 Respiratory Effort / Characteristics Non-Labored Spontaneous Non-Labored Spontaneous Respiratory Depth Normal Normal Respiratory Pattern Regular Regular Blood Pressure Blood Pressure [Right Arm] 111/76 162/61 H Blood Pressure Mean Blood Pressure Mean [Right Arm] 87 94 Blood Pressure Position Blood Pressure Position [Right Arm] Semi-fowlers Semi-fowlers Pulse Oximetry 98 95 Pulse Oximetry [Exercises] 97 Pulse Oximetry [Recovery] 97 Pulse Oximetry [Resting] 98 Oxygen Delivery Method Room Air Room Air Room Air Oxygen Flow Rate Sepsis Recent Fever Within 48 Hours Sepsis New/Unexplained Change in Mental Status Sepsis Action Taken by Nursing GENERAL: alert, well appearing, well nourished, no distress, non-toxic, BMI 39 EYE EXAM: normal conjunctiva, PERRL and EOM's grossly intact OROPHARYNX: no exudate, no erythema, lips, buccal mucosa, and tongue normal and mucous membranes are moist NECK: supple, no nuchal rigidity, no adenopathy, non-tender LUNGS: Clear but decreased to auscultation. Normal chest wall mechanics, no w/r/r, mild conversational dyspnea HEART: no murmurs, S1 normal and S2 normal ABDOMEN: abdomen soft, non-tender, normo-active bowel sounds, no masses, no rebound or guarding. BACK: Back is symmetrical on inspection and there is no deformity, no midline tenderness, no CVA tenderness. SKIN: no rashes and no bruising UPPER EXTREMITIES: upper extremities are grossly normal. FROM, nml pulses b/l. LOWER EXTREMITIES: No pitting edema. FROM, nml pulses b/l. NEURO EXAM: Normal sensorium, cranial nerves II-XII grossly intact, normal speech, no gross weakness of arms, no gross weakness of legs. Gross sensation intact. Course Course 2201: Patient states he is feeling slightly improved with nebulizer treatments. He states he is still coughing up a lot of mucus which provides temporary relief. Administered Medications Atorvastatin Calcium (Atorvastatin 20 Mg Tab) 20 mg PO DAILY SHARI Stop: 02/11/22 08:59 Last Admin: 01/12/22 08:34 Dose: 20 mg Documented By: MG Cetirizine HCl (Cetirizine Hcl 10 Mg Tablet) 10 mg PO QAM SHARI Stop: 02/11/22 10:29 Last Admin: 01/12/22 10:57 Dose: 10 mg Documented By: MG Enoxaparin Sodium (Enoxaparin Inj 40 Mg/0.4 Ml Syr) 40 mg SQ Q12H SHARI Stop: 02/11/22 08:59 Last Admin: 01/12/22 08:33 Dose: 40 mg Documented By: MG Escitalopram Oxalate (Escitalopram Oxalate 10 Mg Tab) 10 mg PO QAM SHARI Stop: 02/11/22 08:59 Last Admin: 01/12/22 08:34 Dose: 10 mg Documented By: MG Fluticasone Propionate (Fluticasone Propionate Na Spr 16 Gm Btl) 2 sprays NA DAILY SHARI Stop: 02/11/22 10:29 Last Admin: 01/12/22 10:58 Dose: 2 sprays Documented By: MG Fluticasone/Vilanterol (Fluticasone/Vilanterol 100/25mcg 14 Puffs/Inhaler) 1 puffs INH DAILY SHARI Stop: 02/11/22 10:29 Last Admin: 01/12/22 10:58 Dose: 1 puffs Documented By: MG Guaifenesin (Guaifenesin 600 Mg Tabcr) 1,200 mg PO Q12 SHARI Stop: 02/11/22 08:59 Last Admin: 01/12/22 09:41 Dose: 1,200 mg Documented By: MG Lisinopril/HCTZ (Lisinopril/Hctz 10/12.5mg Tab) 1 tab PO DAILY SHARI Stop: 02/11/22 08:59 Last Admin: 01/12/22 08:34 Dose: 1 tab Documented By: MG Ipratropium [place] (Ipratropium [place] Neb Soln 0.02% 2.5 Ml Vial) 0.5 mg INH TIDR SHARI Stop: 02/11/22 06:59 Last Admin: 01/12/22 12:08 Dose: 0.5 mg Documented By: Admin: 01/12/22 07:26 Dose: 0.5 mg Documented By: MAXI Levalbuterol HCl (Levalbuterol 1.25mg/0.5ml Neb) 1.25 mg INH TIDR SHARI Stop: 02/11/22 06:59 Last Admin: 01/12/22 12:08 Dose: 1.25 mg Documented By: Admin: 01/12/22 07:26 Dose: 1.25 mg Documented By: MAXI Discontinued Medications Albuterol (Albut/Ipratrop 3mg/0.5mg Neb 3 Ml Vial) 3 ml NEB NOW STA; Protocol Stop: 01/11/22 19:10 Last Admin: 01/11/22 19:31 Dose: 3 ml Documented By: ITZEL Albuterol (Albut/Ipratrop 3mg/0.5mg Neb 3 Ml Vial) 3 ml NEB NOW STA; Protocol Stop: 01/11/22 20:52 Last Admin: 01/11/22 21:10 Dose: 3 ml Documented By: ITZEL Albuterol (Albut/Ipratrop 3mg/0.5mg Neb 3 Ml Vial) 3 ml NEB NOW STA; Protocol Stop: 01/11/22 21:48 Last Admin: 01/11/22 22:19 Dose: 3 ml Documented By: ITZEL Sodium Chloride (Nss 1000ml) 1,000 mls @ 250 mls/hr IV .Q4H SHARI Stop: 02/10/22 19:14 Last Admin: 01/12/22 04:06 Dose: Not Given Documented By: [id number] Infusion: 01/12/22 04:06 Dose: 0 mls/hr Documented By: [id number] Admin: 01/12/22 01:11 Dose: 250 mls/hr Documented By: Infusion: 01/12/22 01:02 Dose: 0 mls/hr Documented By: Admin: 01/11/22 19:38 Dose: 250 mls/hr Documented By: ITZEL Ioversol (Optiray 320 500ml) 98 ml IV ONCE ONE Stop: 01/11/22 20:06 Last Admin: 01/11/22 20:06 Dose: 98 ml Documented By: POLINA Lorazepam (Lorazepam 2 Mg/2 Ml Syr) 1 mg IV NOW STA; Protocol Stop: 01/11/22 22:56 Last Admin: 01/11/22 23:25 Dose: 1 mg Documented By: ITZEL Methylprednisolone (Methylprednisolone 125 Mg/2 Ml Vial) 60 mg IV NOW STA Stop: 01/11/22 22:29 Last Admin: 01/11/22 23:21 Dose: 60 mg Documented By: ITZEL Medical Decision Making Differential Diagnosis Differential diagnoses includes but is not limited to pneumonia, bronchitis, COPD/Asthma exacerbation, pneumothorax, pulmonary embolism, congestive heart failure, acute coronary syndrome Medical Records Attestation: I reviewed the patient's medical records. Home Medications Current Medication List: was personally reviewed by me Laboratory Data Attestation: I reviewed the patient's lab results. Result diagrams: 01/12/22 07:12 01/12/22 07:12 Lab Results 01/11/22 01/11/22 01/11/22 Range/Units 15:36 15:36 15:36 WBC 14.91 H (4.8-10.8) K/ul RBC 5.69 (4.63-6.08) M/uL Hgb 16.0 (14.0-18.0) g/dl Hct 48.1 (40.1-51.0) % MCV 84.5 (80.0-100.0) fL MCH 28.1 (25.0-34.0) pg MCHC 33.3 (32.0-36.0) g/dL RDW Std Deviation 43.8 (36.4-46.3) fL RDW Coeff of Sandro 14.4 (11.5-14.5) % Plt Count 311 (130-400) K/uL MPV 10.9 (9.4-12.4) fL Immature Gran % (Auto) 0.5 % Neut % (Auto) 72.3 % Lymph % (Auto) 17.0 % [place] % (Auto) 7.9 % Eos % (Auto) 1.6 % Baso % (Auto) 0.7 % Neut # (Auto) 10.78 H (1.4-6.5) K/uL Lymph # (Auto) 2.54 (1.2-3.4) K/uL [place] # (Auto) 1.18 H (0.24-0.82) K/uL Eos # (Auto) 0.24 (0-0.50) K/uL Baso # (Auto) 0.10 (0-0.2) K/uL Immature Gran # (Auto) 0.07 H (0.00-0.02) K/uL PT 10.6 (9.0-12.0) Seconds INR 1.0 (0.9-1.1) APTT 30.1 (21.0-31.0) Seconds PTT Ratio 1.1 Sodium 134 L (136-145) mmol/L Potassium 4.0 (3.5-5.1) mmol/L Chloride 99 (98-107) mmol/L Carbon Dioxide 25 (21-32) mmol/L Anion Gap 10 (3-11) BUN 17 (6-23) mg/dl Creatinine 1.06 (0.6-1.4) mg/dl Est Cr Clr Drug Dosing 98.8 ml/min Est GFR ( Amer) 88.6 ml/min Est GFR (Non-Af Amer) 76.4 ml/min BUN/Creatinine Ratio 16.0 (10-20) Glucose 118 H (70-99(Fasting)) mg/dl Calcium 10.6 H (8.5-10.1) mg/dl Magnesium 1.9 (1.7-2.4) mg/dl Total Bilirubin 0.6 (0.2-1.0) mg/dl AST 25 (13-39) U/L ALT 34 (7-52) U/L Alkaline Phosphatase 71 (34-104) U/L Troponin I High Sens (0-20) pg/ml B-Natriuretic Peptide (0-100) pg/ml Total Protein 8.2 (6.0-8.3) gm/dl Albumin 4.5 (3.4-5.0) gm/dl Globulin 3.7 (2.5-4.0) gm/dl Albumin/Globulin Ratio 1.2 (0.9-2) Adenovirus (PCR) (NotDetected) B. pertussis DNA (PCR) (NotDetected) B.parapertussis DNA PCR (NotDetected) C. pneumoniae DNA (PCR) (NotDetected) Coronavirus OC43 (PCR) (NotDetected) Coronavirus HKU1 (PCR) (NotDetected) Coronavirus 229E (PCR) (NotDetected) SARS-CoV-2 (PCR) (NotDetected) Coronavirus NL63 (PCR) (NotDetected) Human Metapneumovir PCR (NotDetected) Influenza Type A (PCR) (NotDetected) Influenza Type B (PCR) (NotDetected) M. pneumoniae (PCR) (NotDetected) Parainfluenza 1 (PCR) (NotDetected) Parainfluenza 2 (PCR) (NotDetected) Parainfluenza 3 (PCR) (NotDetected) Parainfluenza 4 (PCR) (NotDetected) RSV (PCR) (NotDetected) Entero/Rhino (PCR) (NotDetected) 01/11/22 01/11/22 01/11/22 Range/Units 15:36 19:20 22:49 WBC (4.8-10.8) K/ul RBC (4.63-6.08) M/uL Hgb (14.0-18.0) g/dl Hct (40.1-51.0) % MCV (80.0-100.0) fL MCH (25.0-34.0) pg MCHC (32.0-36.0) g/dL RDW Std Deviation (36.4-46.3) fL RDW Coeff of Sandro (11.5-14.5) % Plt Count (130-400) K/uL MPV (9.4-12.4) fL Immature Gran % (Auto) % Neut % (Auto) % Lymph % (Auto) % [place] % (Auto) % Eos % (Auto) % Baso % (Auto) % Neut # (Auto) (1.4-6.5) K/uL Lymph # (Auto) (1.2-3.4) K/uL [place] # (Auto) (0.24-0.82) K/uL Eos # (Auto) (0-0.50) K/uL Baso # (Auto) (0-0.2) K/uL Immature Gran # (Auto) (0.00-0.02) K/uL PT (9.0-12.0) Seconds INR (0.9-1.1) APTT (21.0-31.0) Seconds PTT Ratio Sodium (136-145) mmol/L Potassium (3.5-5.1) mmol/L Chloride (98-107) mmol/L Carbon Dioxide (21-32) mmol/L Anion Gap (3-11) BUN (6-23) mg/dl Creatinine (0.6-1.4) mg/dl Est Cr Clr Drug Dosing ml/min Est GFR ( Amer) ml/min Est GFR (Non-Af Amer) ml/min BUN/Creatinine Ratio (10-20) Glucose (70-99(Fasting)) mg/dl Calcium (8.5-10.1) mg/dl Magnesium (1.7-2.4) mg/dl Total Bilirubin (0.2-1.0) mg/dl AST (13-39) U/L ALT (7-52) U/L Alkaline Phosphatase (34-104) U/L Troponin I High Sens 5.2 (0-20) pg/ml B-Natriuretic Peptide 12 (0-100) pg/ml Total Protein (6.0-8.3) gm/dl Albumin (3.4-5.0) gm/dl Globulin (2.5-4.0) gm/dl Albumin/Globulin Ratio (0.9-2) Adenovirus (PCR) Not Detected (NotDetected) B. pertussis DNA (PCR) Not Detected (NotDetected) B.parapertussis DNA PCR Not Detected (NotDetected) C. pneumoniae DNA (PCR) Not Detected (NotDetected) Coronavirus OC43 (PCR) Not Detected (NotDetected) Coronavirus HKU1 (PCR) Not Detected (NotDetected) Coronavirus 229E (PCR) Not Detected (NotDetected) SARS-CoV-2 (PCR) Not Detected (NotDetected) Coronavirus NL63 (PCR) Not Detected (NotDetected) Human Metapneumovir PCR Not Detected (NotDetected) Influenza Type A (PCR) Not Detected (NotDetected) Influenza Type B (PCR) Not Detected (NotDetected) M. pneumoniae (PCR) Not Detected (NotDetected) Parainfluenza 1 (PCR) Not Detected (NotDetected) Parainfluenza 2 (PCR) Not Detected (NotDetected) Parainfluenza 3 (PCR) Not Detected (NotDetected) Parainfluenza 4 (PCR) Not Detected (NotDetected) RSV (PCR) Not Detected (NotDetected) Entero/Rhino (PCR) Not Detected (NotDetected) Imaging Data Radiologist's Impression: Chest X-Ray 01/11/22 14:28 XR chest 1V portable CLINICAL HISTORY: SOB TECHNIQUE: Single frontal radiograph of the chest was obtained. Comparison: Comparison is made to chest radiograph 06/20/2021 FINDINGS: Exam is limited by underpenetration. Cardiomegaly is noted. The lungs are clear. No evidence of pleural effusion or pneumothorax. IMPRESSION: No acute chest disease. Cardiomegaly is noted. No evidence of pneumonia. ACT 112: Negative or not required by law. Electronically signed by: Gilberto Phelps M.D. 01/11/2022 4:46 PM Chest CTA 01/11/22 19:09 CHEST CTA for PULMONARY ARTERIES CT DOSE: 911.47 mGy.cm HISTORY: Shortness of breath. TECHNIQUE: Multiaxial CT images of the chest were performed following the intravenous administration of contrast to evaluate the pulmonary arteries. Maximal intensity projection images were also obtained. A dose lowering technique was utilized adhering to the principles of ALARA. COMPARISON STUDY: Chest CTA 03/28/2014. FINDINGS: The visualized spleen and adrenal glands unremarkable. Hepatic steatosis. The thyroid gland enhances normally. No mediastinal or hilar lymphadenopathy. The heart is normal in size. No pleural or pericardial effusions. Normal esophagus. Normal caliber thoracic aorta with no evidence for a dissection. No filling defects within the pulmonary arteries to suggest a pulmonary embolus. No acute fractures within the visualized osseous structures. No pneumothorax. Mild respiratory motion artifact. The central airways are patent. No focal lung consolidations to suggest a pneumonia. IMPRESSION: No evidence for pulmonary embolus. ACT 112: Negative or not required by law. Electronically signed by: Toni Serra M.D. 01/11/2022 8:45 PM ECG Data Attestation: I personally reviewed and interpreted this ECG as follows: Indication: + SOB/dyspnea Rate (beats per minute): 106 Rhythm: + sinus tachycardia ECG Intervals/blocks: + Right Bundle branch block and + Normal QT ECG [place]: + Left axis deviation ECG ST segments: + Nonspecific ST abnormalities MDM Narrative An order was placed for continuous cardiac monitoring. The monitor shows a rate of __106_ with _sinus tachycardia_ rhythm. This is a 61-year-old male who presents with 1 month of difficulty breathing, worsening cough and congestion. Patient failed 2 outpatient courses of antibiotics as well as a burst of steroids and has been using albuterol inhaler. No prior diagnosis of asthma or COPD although patient is a daily smoker. No prior cardiac history. Patient noted to be tachycardic, however otherwise hemodynamically stable. At rest patient is not overtly hypoxic. Labs drawn and sent and initially chest x-ray performed. We discussed these results at bedside. Due to concern for persistent symptoms and negative chest x-ray, patient sent for CT angiography of the chest. No evidence of PE, occult pneumonia, pulmonary edema, or pleural effusion. Patient's troponin was negative. Patient would have mild temporary improvement in symptoms with DuoNeb treatment. Patient's bio fire negative for viral etiology of possible URI. Patient did not have overt hypoxia with ambulatory trial although did appear slightly dyspneic. Due to concern for persistent symptoms without obvious dilma ology, likely underlying diagnosis of COPD, and recent failed outpatient management, case discussed with hospitalist for additional evaluation and management. While patient awaiting bed placement upstairs, I did note that when asleep the patient's oxygen saturations dropped into the 70s. He was placed on supplemental oxygen as a precaution and this time information was relayed to the hospitalist. Impression & Plan Dyspnea, Tobacco abuse, Failure of outpatient treatment Discharge Plan Visit Data Chief Complaint: Shortness of Breath/Dyspnea Stated Complaint: SHORTNESS OF BREATH ED Provider: Netta Mcnamara Discharge Problem: Dyspnea, Tobacco abuse, Failure of outpatient treatment Patient Disposition: Admitted As Inpatient Discharge Instructions Interventions: ED Discharge Assessment Last Done: 01/12/22 02:50
[2022-01-11] MEDS ORDERED: methylPREDNISolone 125 MG/2 ML VIAL IV STA (22:28)
[2022-01-11] MEDS ORDERED: LORazepam 1 MG/1 ML SYR IV STA (22:55)
[2022-01-12] MEDS: SODIUM CHLORIDE 0.9% 1000ML 1,000 ML IV SCH ×2 (01:11→04:06)
[2022-01-12] MEDS ORDERED: NITROGLYCERIN SL 0.4 MG/TAB TAB SL PRN (03:39)
[2022-01-12] MEDS ORDERED: ACETAMINOPHEN 325 MG TAB PO PRN (03:39)
[2022-01-12] MEDS ORDERED: POLYETHYLENE (MIRALAX) 17 GM PACK PO PRN (03:39)
[2022-01-12] MEDS ORDERED: LEVALBUTEROL HCL 1.25 MG/3 ML NEB NEB PRN (03:39)
[2022-01-12] MEDS ORDERED: ALBUTEROL HFA 8 GM INHALER INH PRN (03:39)
--- NOTE | 2022-01-12 04:02 | History and Physical Report ---
DATE OF ADMISSION: 01/12/2022. CHIEF COMPLAINT: Shortness of breath. HISTORY OF PRESENT ILLNESS: This is a 61-year-old male with past medical history significant for hypertension, hyperlipidemia, popliteal artery aneurysm, ischemic leg, lumbar disc disorder, ongoing tobacco abuse, smokes one pack of cigarettes daily, presents with shortness of breath. The patient says it is going for last 1 month. Seems that initially was treated with amoxicillin and not improved and he took steroids and doxycycline and inhalers , it seemed to be little bit improved, but after the patient completed the course about 1 week ago, he started getting short of breath, bringing whitish phlegm. He cannot lie flat, when he lies flat, he gets short of breath .He coughs mostly in the night and morning times. Denies any fever or chills. No swelling in the legs. No chest pain, no nausea, no vomiting, no abdominal pain. Appetite is okay. No headache, no blurred visions, no earache, no runny nose, no sore throat. Currently, while sleeping in the ER, his oxygen sats started going down, was placed on nasal cannula. ALLERGIES: No known drug allergies. PAST MEDICAL HISTORY: As mentioned above. PAST SURGICAL HISTORY: Colonoscopy, lumbar fusion surgery, left femoral popliteal bypass surgery. MEDICATIONS: The patient is on albuterol 2 puffs inhalation q. 4 hours p.r.n., atorvastatin 20 mg p.o. daily, Lexapro 10 mg p.o. daily, lisinopril/hydrochlorothiazide 10/12.5 mg p.o. daily. FAMILY HISTORY: Significant for father has heart disorder; mother has heart disorder and hypertension. SOCIAL HISTORY: Smokes one pack a day. Alcohol, rarely. No drug use. REVIEW OF SYSTEMS: As per HPI. Rest of the review of systems is negative. PHYSICAL EXAMINATION: GENERAL: The patient is obese, not in acute distress. VITAL SIGNS: Temperature 36.9, pulse 62, respiratory rate 18, blood pressure 116/61, oxygen 95% on room air. HEENT: Pupils equal, round and reactive to light. Oral mucosa moist. NECK: No JVD, no neck masses. CARDIOVASCULAR: S1 and S2 heard. Regular rate and rhythm. No murmur, no gallop. RESPIRATORY SYSTEM: Normal AP diameter. No accessory muscle use. No obvious wheezing, no crackles. ABDOMEN: Soft, bowel sounds present, nontender, no distention. CENTRAL NERVOUS SYSTEM: Cranial nerves II-XII grossly intact, nonfocal. EXTREMITIES: No edema, no erythema. LABORATORY DATA: WBC 14.9, hemoglobin 16, hematocrit 48, platelets 311. PT 10.6, INR 1, APTT 30.1. Sodium 134, potassium 4, chloride 99, bicarb 25, BUN 17, creatinine 1.06, serum glucose 118, calcium 10.6, magnesium 1.9, total bilirubin 0.6, AST 25, ALT 34, alkaline phosphatase 71. Troponin I high sensitivity 5.2. BNP 12. BioFire negative. IMAGING DATA: CTA chest, no evidence of pulmonary embolus. No focal lung consolidations. No acute findings. Chest x-ray, no acute disease. EKG: Sinus tachycardia at a rate of 106, left axis deviation, right bundle- branch block. ASSESSMENT AND PLAN: This is a 61-year-old male who presents with ongoing shortness of breath and cough. 1. Shortness of breath and cough ongoing for the last 1 month, initially treated with amoxicillin, then treated with prednisone and doxycycline and inhalers. With oral prednisone and doxycycline, it initially seemed to be little bit better, but after stopping those medications, again it is coming back. Not able to lie flat, but no obvious swelling in the legs, and CTA chest is unremarkable. The patient was dropping oxygen saturations while he is sleeping the ER and was placed on oxygen by nasal cannula. May need sleep study as an outpatient. We will get nocturnal pulse ox study while he is in the hospital. The patient smokes one pack of cigarettes daily, but no obvious wheezing, could be bronchitis. Placed him on nebs around the clock and p.r.n. We will continue to monitor. We will follow an echocardiogram and closely monitor him in the med tele. 2. Hyperlipidemia. On statin. 3. Obesity, BMI is 39. May need sleep study as outpatient. We will get nocturnal pulse ox study while in the hospital. 4. Hypertension. Continue his home medication of lisinopril and hydrochlorothiazide. We will monitor the blood pressure. 5. Deep venous thrombosis prophylaxis: Lovenox. DISPOSITION: Closely monitor in [employer] tele. PT/OT prior to discharge. Social service to help with discharge planning. Job ID: [id number] [facility]
[2022-01-12] MEDS: IPRATROPIUM BROMIDE NEB SOLN 0.02% 2.5 ML VIAL INH SCH ×3 (07:26→19:49)
[2022-01-12] MEDS: LEVALBUTEROL 1.25MG/0.5ML NEB INH SCH ×3 (07:26→19:50)
[2022-01-12 07:55] LABS: Basophils # (auto) 0.02 K/uL (0-0.2); Basophils % (auto) 0.2 %; Eosinophils # (auto) 0.02 K/uL (0-0.50); Eosinophils % (auto) 0.2 %; Hematocrit (blood only) 45.5 % (40.1-51.0); Hemoglobin 15.2 g/dl (14.0-18.0); Immature Granulocytes # (auto) 0.08 K/uL (0.00-0.02); Immature Granulocytes % (auto) 0.8 %; Mean Corpuscular Hemoglobin 28.2 pg (25.0-34.0); Mean Corpuscular Hgb Conc 33.4 g/dL (32.0-36.0); Mean Corpuscular Volume 84.4 fL (80.0-100.0); Mean Platelet Volume 10.8 fL (9.4-12.4); Monocytes # (auto) 0.08 K/uL (0.24-0.82); Monocytes % (auto) 0.8 %; Neutrophils # (auto) 9.04 K/uL (1.4-6.5); Platelet Count 296 K/uL (130-400); RDW Coefficient of Variation 14.6 % (11.5-14.5); RDW Standard Deviation 44.5 fL (36.4-46.3); Red Blood Count 5.39 M/uL (4.63-6.08); White Blood Count 10.04 K/ul (4.8-10.8)
[2022-01-12 08:31] LABS: Troponin I High Sensitivity 5.1 pg/ml (0-20)
[2022-01-12] MEDS: ENOXAPARIN INJ 40 MG/0.4 ML SYR SQ SCH ×2 (08:33→20:24)
[2022-01-12] MEDS: ESCITALOPRAM OXALATE 10 MG TAB PO SCH (08:34)
[2022-01-12] MEDS: LISINOPRIL/HCTZ 10/12.5MG TAB PO SCH (08:34)
[2022-01-12] MEDS: ATORVASTATIN 20 MG TAB PO SCH (08:34)
[2022-01-12 08:45] LABS: Calcium 9.9 mg/dl (8.5-10.1); Creatinine Clr Calc Pharmacy 95.2 ml/min; Est GFR (African American) 84.7 ml/min; Est GFR (Non-African American) 73.1 ml/min; Potassium 4.6 mmol/L (3.5-5.1)
[2022-01-12] MEDS ORDERED: XOPENEX/ATROVENT 1.25mg/0.5MG NEB COMBO NEB SCH (09:00)
[2022-01-12] MEDS: guaiFENesin 600 MG TABCR PO SCH ×2 (09:41→20:25)
[2022-01-12] MEDS: CETIRIZINE HCL 10 MG TABLET PO SCH (10:57)
[2022-01-12] MEDS: FLUTICASONE PROPIONATE NA SPR 16 GM BTL SCH (10:58)
[2022-01-12] MEDS: FLUTICASONE/VILANTEROL 100/25MCG 14 PUFFS/INHALER INH SCH (10:58)
[2022-01-12] MEDS: NICOTINE 21 MG/24 HR TDSY TD SCH (16:50)
--- NOTE | 2022-01-12 17:08 | Hospitalist Progress Note ---
Date of Service January 12, 2022 Assessment & Plan (1) Allergic sinusitis: (2) Cough: (3) Postnasal drip: (4) Smoking: Plan: ASSESSMENT AND PLAN: This is a 61-year-old male who presents with ongoing shortness of breath and cough. 1. Cough, likely secondary to allergic sinusitis, underlying COPD Was also hypoxic on admission CTA chest: No pneumonia, no PE Improving today, off oxygen supplement Add fluticasone nasal spray, Zyrtec, Breo, nebs 3 times daily Hold off on antibiotics for now Echocardiogram: EF more than 70%, mild concentric LVH, no regional wall motion abnormalities, attic valve sclerosis is mild, no other valvular disease 2. Hyperlipidemia. On statin. 3. Obesity, BMI is 39. May need sleep study as outpatient. We will get nocturnal pulse ox study while in the hospital. 4. Hypertension. Continue his home medication of lisinopril and hydrochlorothiazide. We will monitor the blood pressure. 5. Deep venous thrombosis prophylaxis: Lovenox. Disposition Possible discharge home tomorrow Nocturnal pulse ox study pending Admission and Anticipated Discharge Date Admission Date: January 12, 2022 Subjective Follow-up for acute cough, etc. Seen resting in bed, comfortable, not distressed States he feels better compared to last night Breathing is easier Still having some cough, productive of white sputum No chest pain, palpitations, dizziness Denies fevers or chills, nausea vomiting, abdominal pain No problems with bowel movements or urination No other symptoms Review of Systems Review of Systems: all noted and negative except for above Physical Exam Physical Exam: General- oriented x 3, not in distress, speaks in sentences with no effort or accessory muscle use Eyes- anicteric Throat-hyperemia of pharynx, no tonsillar enlargement or exudates Neck- no JVD Positive lymphadenopathy right submandibular area Ear-no discharge, no tenderness of pinnae Lungs-faint wheeze/rhonchi upper lung [place] Heart- normal rate, regular rhythm; no murmurs Abdomen- normal bowel sounds, nondistended, soft, nontender Extremities- no pretibial edema, no calf tenderness Neuro- alert, oriented x 3; no gross focal neurologic deficits Skin- warm & dry Results & Data Results & Data ([facility]) Vital Signs (Past 12 Hours) Vital Signs Temp Pulse Pulse Resp BP Pulse Ox O2 Del Method 01/12/22 15:28 36.7 C 108 H 20 144/83 H 92 Room Air 01/12/22 14:18 87 01/12/22 12:08 112 H 16 94 Room Air 01/12/22 11:41 36.7 C 104 H 20 121/80 94 Room Air 01/12/22 06:12 101 H 01/12/22 07:46 Room Air 01/12/22 07:40 36.6 C 109 H 22 138/90 98 Room Air 01/12/22 07:27 110 H 18 94 Room Air all noted and reviewed including below
[2022-01-12] MEDS ORDERED: diphenhydrAMINE Capsule 25 MG CAP PO PRN (18:00)
[2022-01-12] MEDS ORDERED: LORazepam 0.5 MG TAB PO PRN (18:00)
[2022-01-13] MEDS ORDERED: LORazepam 0.5 MG TAB PO STA (00:20)
[2022-01-13 07:24] LABS: BUN Creatinine Ratio 25.3 (10-20); Calcium 9.1 mg/dl (8.5-10.1); Creatinine Clr Calc Pharmacy 106.3 ml/min; Est GFR (African American) 96.2 ml/min; Potassium 3.9 mmol/L (3.5-5.1)
[2022-01-13] MEDS: LEVALBUTEROL 1.25MG/0.5ML NEB INH SCH (07:38)
[2022-01-13] MEDS: IPRATROPIUM BROMIDE NEB SOLN 0.02% 2.5 ML VIAL INH SCH (07:38)
[2022-01-13] MEDS: ATORVASTATIN 20 MG TAB PO SCH (08:24)
[2022-01-13] MEDS: guaiFENesin 600 MG TABCR PO SCH (08:24)
[2022-01-13] MEDS: ESCITALOPRAM OXALATE 10 MG TAB PO SCH (08:25)
[2022-01-13] MEDS: FLUTICASONE/VILANTEROL 100/25MCG 14 PUFFS/INHALER INH SCH (08:25)
[2022-01-13] MEDS: ENOXAPARIN INJ 40 MG/0.4 ML SYR SQ SCH (08:25)
[2022-01-13] MEDS: CETIRIZINE HCL 10 MG TABLET PO SCH (08:25)
[2022-01-13] MEDS: LISINOPRIL/HCTZ 10/12.5MG TAB PO SCH (08:25)
[2022-01-13] MEDS: NICOTINE 21 MG/24 HR TDSY TD SCH (08:26)
[2022-01-13] MEDS: FLUTICASONE PROPIONATE NA SPR 16 GM BTL SCH (08:26)
[2022-01-13] MEDS ORDERED: IPRATROPIUM BROMIDE NEB SOLN 0.02% 2.5 ML VIAL INH PRN (10:11)
[2022-01-13] MEDS ORDERED: LEVALBUTEROL 1.25MG/0.5ML NEB INH PRN (10:11)
--- NOTE | 2022-01-13 11:23 | Hospitalist Progress Note ---
Date of Service January 13, 2022 Assessment & Plan (1) Allergic sinusitis: (2) Cough: (3) Postnasal drip: (4) Smoking: Plan: ASSESSMENT AND PLAN: This is a 61-year-old male who presents with ongoing shortness of breath and cough. 1. Cough, likely secondary to allergic sinusitis, acute bronchitis, underlying COPD with mild COPD exacerbation Was also hypoxic on admission Given Solu-Medrol 60 mg IV at the ER CTA chest: No pneumonia, no PE Echocardiogram: EF more than 70%, mild concentric LVH, no regional wall motion abnormalities, attic valve sclerosis is mild, no other valvular disease Clinically much better On room air Discharge plan: Flonase 2 sprays each nostril daily x1 week Zyrtec 1 tablet daily x1 week Augmentin twice daily x1 week Probiotics daily Breo 1 puff daily Mucinex twice daily x1 week Nocturnal hypoxemia Possible underlying obstructive sleep apnea Nocturnal pulse oximetry study performed, patient had desaturation of less than 89% for about 15 minutes Oxygen arranged to be used at home Will need a formal sleep study to rule out obstructive sleep apnea as an outpatient 2. Hyperlipidemia. On statin. 3. Obesity, BMI is 39. Outpatient follow-up 4. Hypertension. Continue his home medication of lisinopril and hydrochlorothiazide. 5. Deep venous thrombosis prophylaxis: Lovenox. Given Disposition Discharge to home Follow-up with PCP in 1 week plan of care discussed with patient in detail and at length all questions answered he is understanding, agreeable, comfortable with the plan of care Admission and Anticipated Discharge Date Admission Date: January 12, 2022 Subjective ff up for possible acute bronchitis, underlying COPD, etc seen resting in bed, comfortable states he feels 90% better overall still having some right sided sore throat, swollen glands nasal congestion and post nasal drip improving less cough breathing is better didn't sleep yesterday- could not get comfortable in bed no other symptoms Review of Systems Review of Systems: all noted and negative except for above Physical Exam Physical Exam: General- oriented x 3, not in distress, speaks in sentences with no effort or accessory muscle use Eyes- anicteric Neck- no JVD (+) 1 small lymphadenopathy right mandibular area, with tenderness No tonsillar enlargement, exudates Lungs- clear breath sounds bilaterally, no rales/wheezes Heart- normal rate, regular rhythm; no murmurs Abdomen- normal bowel sounds, nondistended, soft, nontender Extremities- no pretibial edema, no calf tenderness Neuro- alert, oriented x 3; no gross focal neurologic deficits Skin- warm & dry Results & Data Results & Data ([facility]) Vital Signs (Past 12 Hours) Vital Signs Temp Pulse Pulse Pulse Resp BP Pulse Ox 01/13/22 08:05 36.6 C 75 18 120/81 94 01/13/22 07:39 88 16 96 01/13/22 07:10 73 01/13/22 02:31 36.7 C 18 L 124/85 95 01/13/22 01:56 101 H 01/13/22 01:50 90 Pulse Ox O2 Del Method O2 Del Method 01/13/22 08:05 Room Air 01/13/22 07:39 Room Air 01/13/22 07:10 01/13/22 02:31 Room Air 01/13/22 01:56 01/13/22 01:50 98 Room Air all noted and reviewed including below
--- NOTE | 2022-01-13 13:58 | Discharge Summary ---
Discharge Summary Date of Service January 13, 2022 Notes For Next Care Provider Nocturnal pulse oximetry study revealing patient desaturating below 89% for 15 minutes Home oxygen for use while sleeping arrange Please refer patient for formal sleep study to rule out obstructive sleep apnea Medication Changes From Visit Fluticasone nasal spray Zyrtec Augmentin twice daily x7 days Breo inhaler Mucinex twice daily Admission HPI Per Admitting Provider CHIEF COMPLAINT: Shortness of breath. HISTORY OF PRESENT ILLNESS: This is a 61-year-old male with past medical history significant for hypertension, hyperlipidemia, popliteal artery aneurysm, ischemic leg, lumbar disc disorder, ongoing tobacco abuse, smokes one pack of cigarettes daily, presents with shortness of breath. The patient says it is going for last 1 month. Seems that initially was treated with amoxicillin and not improved and he took steroids and doxycycline and inhalers , it seemed to be little bit improved, but after the patient completed the course about 1 week ago, he started getting short of breath, bringing whitish phlegm. He cannot lie flat, when he lies flat, he gets short of breath .He coughs mostly in the night and morning times. Denies any fever or chills. No swelling in the legs. No chest pain, no nausea, no vomiting, no abdominal pain. Appetite is okay. No headache, no blurred visions, no earache, no runny nose, no sore throat. Currently, while sleeping in the ER, his oxygen sats started going down, was placed on nasal cannula. Admission Exam Per Admitting Provider GENERAL: The patient is obese, not in acute distress. VITAL SIGNS: Temperature 36.9, pulse 62, respiratory rate 18, blood pressure 116/61, oxygen 95% on room air. HEENT: Pupils equal, round and reactive to light. Oral mucosa moist. NECK: No JVD, no neck masses. CARDIOVASCULAR: S1 and S2 heard. Regular rate and rhythm. No murmur, no gallop. RESPIRATORY SYSTEM: Normal AP diameter. No accessory muscle use. No obvious wheezing, no crackles. ABDOMEN: Soft, bowel sounds present, nontender, no distention. CENTRAL NERVOUS SYSTEM: Cranial nerves II-XII grossly intact, nonfocal. EXTREMITIES: No edema, no erythema. Principal Dx & Hospital Course #1 = Principal Diagnosis (1) Allergic sinusitis: (2) Cough: (3) Postnasal drip: (4) Smoking: ASSESSMENT AND PLAN: This is a 61-year-old male who presents with ongoing shortness of breath and cough. 1. Cough, likely secondary to Allergic sinusitis, Acute bronchitis, underlying COPD with mild exacerbation Was also hypoxic on admission Given Solu-Medrol 60 mg IV at the ER CTA chest: No pneumonia, no PE Echocardiogram: EF more than 70%, mild concentric LVH, no regional wall motion abnormalities, attic valve sclerosis is mild, no other valvular disease Clinically much better On room air Discharge plan: Flonase 2 sprays each nostril daily x1 week Zyrtec 1 tablet daily x1 week Augmentin twice daily x1 week Probiotics daily Breo 1 puff daily Mucinex twice daily x1 week Nocturnal hypoxemia Possible underlying obstructive sleep apnea Nocturnal pulse oximetry study performed, patient had desaturation of less than 89% for about 15 minutes Oxygen arranged to be used at home Will need a formal sleep study to rule out obstructive sleep apnea as an outpatient Hepatic steatosis Seen on CT chest Follow-up as an outpatient 2. Hyperlipidemia. On statin. 3. Obesity, BMI is 39. Outpatient follow-up 4. Hypertension. Continue his home medication of lisinopril and hydrochlorothiazide. 5. Deep venous thrombosis prophylaxis: Lovenox. Given Disposition Discharge to home Follow-up with PCP in 1 week plan of care discussed with patient in detail and at length all questions answered he is understanding, agreeable, comfortable with the plan of care Discharge Exam General- oriented x 3, not in distress, speaks in sentences with no effort or accessory muscle use Eyes- anicteric Neck- no JVD (+) 1 small lymphadenopathy right mandibular area, with tenderness No tonsillar enlargement, exudates Lungs- clear breath sounds bilaterally, no rales/wheezes Heart- normal rate, regular rhythm; no murmurs Abdomen- normal bowel sounds, nondistended, soft, nontender Extremities- no pretibial edema, no calf tenderness Neuro- alert, oriented x 3; no gross focal neurologic deficits Skin- warm & dry Updated Medication List Medication Instructions Recorded Confirmed Type atorvastatin 20 mg tablet 20 mg PO DAILY 11/17/20 01/11/22 History lisinopril 10 1 tab PO DAILY 11/17/20 01/11/22 History mg-hydrochlorothiazide 12.5 mg tablet escitalopram oxalate 10 mg tablet 10 mg PO QAM 06/20/21 01/11/22 History albuterol sulfate 90 mcg/actuation 2 puff inhalation Q4 PRN Shortness 01/11/22 01/11/22 History aerosol inhaler Of Breath Or Wheezing amoxicillin 875 mg-potassium 1 tab PO BID #14 tabs 01/13/22 Rx clavulanate 125 mg tablet cetirizine 10 mg tablet 10 mg PO QAM 10 days #10 tabs 01/13/22 Rx fluticasone furoate 100 1 ea inhalation DAILY 2 weeks #60 01/13/22 Rx mcg-vilanterol 25 mcg/dose ea inhalation powder (Breo Ellipta) fluticasone propionate 50 2 spray NA DAILY 10 days #16 grams 01/13/22 Rx mcg/actuation nasal spray,suspension guaifenesin 600 mg tablet, 1,200 mg PO Q12 7 days #28 tabs 01/13/22 Rx extended release 12 hr (Mucinex) Hospital Stay Data Consultations 01/11/22 23:02 ED Decision to Admit Stat Diagnostic Imagining Performed 01/11/22 19:09 CT angio chest PE protocol Stat COMPARISON STUDY: Chest CTA 03/28/2014. FINDINGS: The visualized spleen and adrenal glands unremarkable. Hepatic steatosis. The thyroid gland enhances normally. No mediastinal or hilar lymphadenopathy. The heart is normal in size. No pleural or pericardial effusions. Normal esophagus. Normal caliber thoracic aorta with no evidence for a dissection. No filling defects within the pulmonary arteries to suggest a pulmonary embolus. No acute fractures within the visualized osseous structures. No pneumothorax. Mild respiratory motion artifact. The central airways are patent. No focal lung consolidations to suggest a pneumonia. IMPRESSION: No evidence for pulmonary embolus. ACT 112: Negative or not required by law. Electronically signed by: Toni Serra M.D. 01/11/2022 8:45 PM Pending Results Patient Have Any Pending Studies at Discharge: No Discharge Instructions Given to Patient (Per Discharging Provider) PLEASE REFER TO YOUR NEW MEDICATION LIST AND FOLLOW INSTRUCTIONS CAREFULLY. YOUR NEW MEDICATIONS INCLUDE: Flonase nasal spray-for allergic rhinitis/sinusitis Zyrtec-for allergic rhinitis Augmentin-antibiotic for pharyngitis and acute bronchitis Breo-for possible COPD exacerbation Mucinex-for cough Continue using albuterol inhaler as needed for shortness of breath or wheezing Please take a probiotic daily for 1 month. (Renew Life [id number], recommended). Drink plenty of fluids. No smoking, alcohol use. PLEASE CALL YOUR PRIMARY CARE PHYSICIAN OR RETURN TO THE ER IF WITH WORSENING OF SYMPTOMS, INCLUDING Worsening cough, shortness of breath, fevers or chills, etc. FOLLOW UP WITH PRIMARY CARE PHYSICIAN OUTLINED ABOVE. Total Time Total Time Spent Total Time Spent (In Minutes): >30 minutes
== END 2022-01-13 14:44 | disposition home or self-care (01) ==
LOC: ED 14:06 → INTOOBSV 01-12 02:03 → 2W 01-12 02:03 → SUATTDRO 01-12 02:03 → 2W 01-12 02:50

== ENCOUNTER 2022-02-03 10:42 | Observation (INO) ==
--- NOTE | 2022-02-03 11:32 | XRay Report ---
SINGLE VIEW CHEST CLINICAL HISTORY: Dyspnea. FINDINGS: An AP, portable, upright chest radiograph is compared to study dated 01/27/2022. A tracheos quintin is in place. The heart is enlarged. The pulmonary vasculature is noncongestive. Chronic intersti tial thickening is similar to previous. There is mild bibasilar atelectasis. The lungs and pleural sp aces are otherwise clear. No pneumothorax is seen. The skeletal structures are osteopenic. The bony t horax is grossly intact. IMPRESSION: Cardiomegaly with no active disease in the chest. ACT 112: Negative or not required by law. Electronically signed by: Christ Allred M.D. 02/03/2022 11:31 AM
[2022-02-03 11:57] LABS: Basophils # (auto) 0.08 K/uL (0-0.2); Basophils % (auto) 0.6 %; Eosinophils % (auto) 0.7 %; Hematocrit (blood only) 40.7 % (40.1-51.0); Hemoglobin 13.7 g/dl (14.0-18.0); Immature Granulocytes # (auto) 0.09 K/uL (0.00-0.02); Immature Granulocytes % (auto) 0.7 %; Lymphocytes # (auto) 1.79 K/uL (1.2-3.4); Lymphocytes % (auto) 13.1 %; Mean Corpuscular Hemoglobin 27.7 pg (25.0-34.0); Mean Corpuscular Hgb Conc 33.7 g/dL (32.0-36.0); Mean Corpuscular Volume 82.2 fL (80.0-100.0); Mean Platelet Volume 10.4 fL (9.4-12.4); Monocytes # (auto) 0.91 K/uL (0.24-0.82); Monocytes % (auto) 6.6 %; Neutrophils # (auto) 10.74 K/uL (1.4-6.5); Neutrophils % (auto) 78.3 %; Platelet Count 404 K/uL (130-400); RDW Coefficient of Variation 13.7 % (11.5-14.5); RDW Standard Deviation 40.6 fL (36.4-46.3); Red Blood Count 4.95 M/uL (4.63-6.08); White Blood Count 13.71 K/ul (4.8-10.8)
--- NOTE | 2022-02-03 12:12 | Emergency Department Note ---
History of Present Illness General Chief complaint: Shortness of Breath/Dyspnea Stated complaint: HAS TRACH, CANNOT GET ENOUGH OXYGEN Time Seen by Provider: 02/03/22 11:04 History of Present Illness Provider complaint: Difficulty breathing Onset (ago): day(s) 1 61-year-old male presents emergency department for difficulty breathing. Patient does have a trach in place which was placed approximately 1 week ago at [facility]. He states he keeps coughing in the middle night and feels like he cannot catch his breath because his trach is so dry. The states that they did not discharge patient home with any of the supplies needed for his trach. She states that her recently seen in the emergency department approximately a week ago and were given a saline nebulizer but that has not been helping. No fevers. Patient states he change the inner cannula this morning to make sure there is no thing obstructing his inner cannula however it did not he lp. Home Medications Medication Instructions Recorded Confirmed Type atorvastatin 20 mg tablet 20 mg PO DAILY 11/17/20 02/03/22 History lisinopril 10 1 tab PO DAILY 11/17/20 02/03/22 History mg-hydrochlorothiazide 12.5 mg tablet escitalopram oxalate 10 mg tablet 10 mg PO QAM 06/20/21 02/03/22 History albuterol sulfate 90 mcg/actuation 2 puff inhalation Q4 PRN Shortness 01/11/22 02/03/22 History aerosol inhaler Of Breath Or Wheezing oxycodone 5 mg tablet 5 mg PO Q6 PRN pain #12 tabs 01/27/22 02/03/22 Rx sodium chloride 7 % for 1 inh inhalation BID #240 mL 01/27/22 02/03/22 Rx nebulization (Hyper-Munir) aspirin 81 mg tablet 81 mg PO DAILY 02/03/22 02/03/22 History lorazepam 1 mg tablet (Ativan) 1 mg PO BID PRN anxiety 02/03/22 02/03/22 History Allergies Allergy/AdvReac Type Severity Reaction Status Date / Time No Known Allergies Allergy Verified 01/27/22 13:04 Past Med/Surg History Medical History SARABJIT (acute kidney injury) High cholesterol HTN (hypertension), benign Renal colic on left side Surgical History History of lumbar fusion Family History Mother Hypertension Father Heart disease Social History Smoking Status: Never smoker Tobacco Type: Cigarettes Cigarettes Per Day: 1 pack; Hx Alcohol Use: Yes Alcohol type: hard liquor Hx Substance Use: No Preferred Language: Divehi Communication Ability: Effective Visual Impairment: No Limitations Hearing Ability: Normal Account Support Specialist Required: No Beliefs That Will Affect Care: None marital status: Current Living Situation: Alone current occupational status: employed current occupation: [employer] Feels Safe at Home: Yes Assistive Devices: None Review of Systems A total of 10 systems reviewed and were otherwise negative Physical Exam Vital Signs Vital Signs - 24 hr 02/03/22 10:49 02/03/22 10:52 02/03/22 10:52 Temperature Temperature Source Pulse Rate 76 Pulse Rate [Apical] Pulse Rhythm Pulse Rhythm [Apical] Pulse Strength [Apical] Respiratory Rate 20 Respiratory Effort / Characteristics SOB on Exertion Short of Breath Respiratory Depth Shallow Respiratory Pattern Tachypnea Blood Pressure 105/65 Blood Pressure [Right Arm] Blood Pressure Mean 78 Blood Pressure Mean [Right Arm] Blood Pressure Position [Right Arm] Pulse Oximetry 100 99 Oxygen Delivery Method Room Air Room Air Oxygen Flow Rate 0 Sepsis Recent Fever Within 48 Hours No Sepsis New/Unexplained Change in Mental Status No Sepsis Action Taken by Nursing No Action Required 02/03/22 10:55 02/03/22 11:52 02/03/22 11:53 Temperature Temperature Source Pulse Rate 72 Pulse Rate [Apical] 75 68 Pulse Rhythm Regular Pulse Rhythm [Apical] Regular Pulse Strength [Apical] Normal Respiratory Rate 25 H 20 20 Respiratory Effort / Characteristics SOB on Exertion Non-Labored Respiratory Depth Normal Respiratory Pattern Regular Blood Pressure Blood Pressure [Right Arm] 111/81 Blood Pressure Mean Blood Pressure Mean [Right Arm] 91 Blood Pressure Position [Right Arm] Lying Pulse Oximetry 99 99 99 Oxygen Delivery Method Room Air Trach Collar Trach Collar Oxygen Flow Rate Sepsis Recent Fever Within 48 Hours Sepsis New/Unexplained Change in Mental Status Sepsis Action Taken by Nursing 02/03/22 12:17 02/03/22 14:00 02/03/22 14:00 Temperature 36.7 C Temperature Source Oral Pulse Rate 78 Pulse Rate [Apical] Pulse Rhythm Pulse Rhythm [Apical] Regular Pulse Strength [Apical] Normal Respiratory Rate 24 Respiratory Effort / Characteristics Labored Respiratory Depth Shallow Respiratory Pattern Tachypnea Blood Pressure 106/65 Blood Pressure [Right Arm] Blood Pressure Mean 78 Blood Pressure Mean [Right Arm] Blood Pressure Position [Right Arm] Pulse Oximetry 97 Oxygen Delivery Method Trach Collar Trach Collar Oxygen Flow Rate Sepsis Recent Fever Within 48 Hours Sepsis New/Unexplained Change in Mental Status Sepsis Action Taken by Nursing Physical Exam HENT: Exam performed. - Head: Normocephalic and atraumatic. - Right Ear: External ear normal. No mastoid tenderness. - Left Ear: External ear normal. No mastoid tenderness. EYES: Conjunctivae and EOM are normal. Pupils are equal, round, and reactive to light. Right eye exhibits no discharge. Left eye exhibits no discharge. No scleral icterus. NECK: Tracheostomy in place with no bleeding or discharge coming from the area. CV: Normal rate, regular rhythm, normal heart sounds and intact distal pulses. There is no peripheral edema. Palpable radial pulses bue. PULM/CHEST: Effort normal and breath sounds normal. No respiratory distress. No stridor. He has no wheezes. He has no rales. - Chest Wall: He exhibits no tenderness. NEURO: GCS eye subscore is 4. GCS verbal subscore is 5. GCS motor subscore is 6. SKIN: Skin is warm and dry. He is not diaphoretic. PSYCH: He has a normal mood and affect. Behavior is normal. Judgment and thought content normal. Course Course 1104: The patient was evaluated in room B2. A complete history and physical exam was performed Cardiac monitoring: An order was placed for continuous cardiac monitoring. The monitor shows a rate of 70 with sinus rhythm Respiratory was called to bedside and applied humidified air over the trach collar which seemed to improve the patient's symptoms. Patient states his trach seems so dry and that is why he keeps coughing and feels short of breath. 42112: Vital signs stable. Patient reports some relief with the humidified air going through the tracheostomy. Tracheostomy cannula does appear clean and is not obstructed. Labs and imaging are within normal limits. at bedside states they have tried to call multiple times to get the supplies that they need for his tracheostomy at home however they have been unable to secure these to their home. She states she called again and that the medical supply stores in the area are closed for the holiday and they have no supplies for tracheostomy at home. Discussed the case with case management and this is confirmed, there is no one available to supply him with the supplies he needs for his tracheostomy. [facility] for [facility] of care given he does not have the supplies necessary for his trache ostomy. Administered Medications Discontinued Medications Oxycodone HCl (Oxycodone Hcl Ir 5 Mg Tab (Immediate Release)) Confirm Administered Dose 5 mg .ROUTE .STK-MED ONE Stop: 02/03/22 13:38 Last Admin: 02/03/22 13:52 Dose: 5 mg Documented By: KARMEN Medical Decision Making Laboratory Data Result diagrams: 02/03/22 11:48 02/03/22 11:48 Lab Results 02/03/22 02/03/22 02/03/22 Range/Units 11:48 11:48 13:58 WBC 13.71 H (4.8-10.8) K/ul RBC 4.95 (4.63-6.08) M/uL Hgb 13.7 L (14.0-18.0) g/dl Hct 40.7 (40.1-51.0) % MCV 82.2 (80.0-100.0) fL MCH 27.7 (25.0-34.0) pg MCHC 33.7 (32.0-36.0) g/dL RDW Std Deviation 40.6 (36.4-46.3) fL RDW Coeff of Sandro 13.7 (11.5-14.5) % Plt Count 404 H (130-400) K/uL MPV 10.4 (9.4-12.4) fL Immature Gran % (Auto) 0.7 % Neut % (Auto) 78.3 % Lymph % (Auto) 13.1 % [place] % (Auto) 6.6 % Eos % (Auto) 0.7 % Baso % (Auto) 0.6 % Neut # (Auto) 10.74 H (1.4-6.5) K/uL Lymph # (Auto) 1.79 (1.2-3.4) K/uL [place] # (Auto) 0.91 H (0.24-0.82) K/uL Eos # (Auto) 0.10 (0-0.50) K/uL Baso # (Auto) 0.08 (0-0.2) K/uL Immature Gran # (Auto) 0.09 H (0.00-0.02) K/uL Sodium 133 L (136-145) mmol/L Potassium 3.9 (3.5-5.1) mmol/L Chloride 99 (98-107) mmol/L Carbon Dioxide 24 (21-32) mmol/L Anion Gap 10 (3-11) BUN 16 (6-23) mg/dl Creatinine 1.11 (0.6-1.4) mg/dl Est Cr Clr Drug Dosing 92.4 ml/min Est GFR ( Amer) 83.8 ml/min Est GFR (Non-Af Amer) 72.3 ml/min BUN/Creatinine Ratio 14.4 (10-20) Glucose 95 (70-99(Fasting)) mg/dl Calcium 9.8 (8.5-10.1) mg/dl SARS-CoV-2, RNA, NAAT NEGATIVE (NEGATIVE) Imaging Data Radiologist's Impression: Chest X-Ray 02/03/22 11:08 SINGLE VIEW CHEST CLINICAL HISTORY: Dyspnea. FINDINGS: An AP, portable, upright chest radiograph is compared to study dated 01/27/2022. A tracheostomy is in place. The heart is enlarged. The pulmonary vasculature is noncongestive. Chronic interstitial thickening is similar to previous. There is mild bibasilar atelectasis. The lungs and pleural spaces are otherwise clear. No pneumothorax is seen. The skeletal structures are osteopenic. The bony thorax is grossly intact. IMPRESSION: Cardiomegaly with no active disease in the chest. ACT 112: Negative or not required by law. Electronically signed by: Christ Allred M.D. 02/03/2022 11:31 AM [facility] Narrative 1104: The patient was evaluated in room B2. A complete history and physical exam was performed Cardiac monitoring: An order was placed for continuous cardiac monitoring. The monitor shows a rate of 70 with sinus rhythm Respiratory was called to bedside and applied humidified air over the trach collar which seemed to improve the patient's symptoms. Patient states his trach seems so dry and that is why he keeps coughing and feels short of breath. [id number]: Vital signs stable. Patient reports some relief with the humidified air going through the tracheostomy. Tracheostomy cannula does appear clean and is not obstructed. Labs and imaging are within normal limits. at bedside states they have tried to call multiple times to get the supplies that they need for his tracheostomy at home however they have been unable to secure these to their home. She states she called again and that the medical supply stores in the area are closed for the holiday and they have no supplies for tracheostomy at home. Discussed the case with case management and this is confirmed, there is no one available to supply him with the supplies he needs for his tracheostomy. Will contact the [facility] hospitalist team to admit the patient for part of care given he does not have the supplies necessary for his tracheostomy. Impression & Plan SOB (shortness of breath) Discharge Plan Visit Data Chief Complaint: Shortness of Breath/Dyspnea Stated Complaint: HAS TRACH, CANNOT GET ENOUGH OXYGEN ED Provider: Niles Diego Discharge Problem: SOB (shortness of breath) Patient Disposition: Being Evaluated by Hospitalist Forms Stand Alone Forms: My [facility] [employer] Prescriptions Prescriptions: No Action lisinopril-hydrochlorothiazide 10-12.5 mg tablet 1 tab PO DAILY atorvastatin 20 mg tablet 20 mg PO DAILY albuterol sulfate 90 mcg/actuation HFA aerosol inhaler 2 puff INHALATION Q4 PRN (Reason: Shortness Of Breath Or Wheezing) oxycodone 5 mg tablet 5 mg PO Q6 PRN (Reason: pain) Qty: 12 0RF sodium chloride [Hyper-Munir] 7 % Solution For Nebulization 1 inh INHALATION BID Qty: 240 1RF escitalopram oxalate 10 mg tablet 10 mg PO QAM lorazepam [Ativan] 1 mg tablet 1 mg PO BID PRN (Reason: anxiety) aspirin 81 mg Tablet 81 mg PO DAILY Referrals Referrals: Juice Strauss MD [Primary Care Provider] -
[2022-02-03 12:20] LABS: BUN Creatinine Ratio 14.4 (10-20); Calcium 9.8 mg/dl (8.5-10.1); Creatinine Clr Calc Pharmacy 92.4 ml/min; Est GFR (African American) 83.8 ml/min; Est GFR (Non-African American) 72.3 ml/min; Potassium 3.9 mmol/L (3.5-5.1)
--- NOTE | 2022-02-03 12:41 | History & Physical Report ---
Date of Service February 03, 2022 Assessment & Plan (1) Status post tracheostomy: Plan: Post tracheostomy bronchospasm Likely secondary to lack of humidification Mild Compression due to neck mass likely contributing as well --CXR:Cardiomegaly with no active disease in the chest. Continue humidification Nebs PRN Needs humidification system arranged prior to discharge Consider ENT evaluation if needed Saturating well on room air Continue hypertonic saline nebs Mild leukocytosis Likely reactive postsurgically No obvious source of infection Monitor Chronic hyponatremia Likely secondary to diuretics Monitor sodium levels Squamous cell cancer of hypopharynx Airway obstruction secondary to above S/P tracheostomy Plan for total laryngectomy and bilateral neck dissections with free flap reconstruct Pain control Follows with ENT as outpatient Hyperlipidemia Continue statin Mood disorder Continue escitalopram, Ativan as needed Tobacco use disorder Currently not actively smoking as per patient Right popliteal artery aneurysm Follow-up as outpatient DVT Px: Lovenox SQ Code Status Full Code History of Present Illness Chief Complaint: Shortness of breath Primary Care Provider: Juice Strauss MD Patient is a 61-year-old male with history of squamous cell cancer of hypopharynx, tobacco use disorder, hypertension, hyperlipidemia, right popliteal artery aneurysm, airway obstruction S/P tracheostomy and other medical problems presents with history of shortness of breath, cough, insomnia which has been ongoing since tracheostomy by Dr. Sullivan on 01/20/2022 at [facility]. History is obtained from patient, also with patient's significant other at bedside. Patient was evaluated at [facility] for airway obstruction which was thought to be secondary to large hypopharyngeal mass noted to be on fiberoptic scope and so underwent awake tracheostomy, direct laryngoscopy with biopsies. Patient states that since after the procedure patient has been having shortness of breath, cough, insomnia which she attributes to having dry throat/irritation secondary to tracheostomy. He was prescribed humidification supplies but was unable to obtain them due to holidays. He was evaluated by ENT Dr. Tee on 02/01/2022 for the same. He has been using heat moisture exchange but lacks supplies to humidification system. He wasted ED 2 days ago and was prescribed hypertonic saline nebs which only temporarily helps. He was planned for total laryngectomy and bilateral neck dissections with free flap reconstruction. Patient also states that he change the inner cannula this morning but feels inability to catch his breath. He was placed on humidified oxygen while in ED which helped with the symptoms. Denies any history of chest pain, palpitations, dizziness, pedal edema, hemoptysis, fever, chills, headache, change in vision, nausea, vomiting, abdominal pain, diarrhea, dysuria, hematuria. He complains of right sided neck pain which she attributes to the tumor which is 8/10 intensity, nonradiating and controlled with pain medication s. Allergies Allergy/AdvReac Type Severity Reaction Status Date / Time No Known Allergies Allergy Verified 01/27/22 13:04 Home Medications Medication Instructions Recorded Confirmed Type atorvastatin 20 mg tablet 20 mg PO DAILY 11/17/20 02/03/22 History lisinopril 10 1 tab PO DAILY 11/17/20 02/03/22 History mg-hydrochlorothiazide 12.5 mg tablet escitalopram oxalate 10 mg tablet 10 mg PO QAM 06/20/21 02/03/22 History albuterol sulfate 90 mcg/actuation 2 puff inhalation Q4 PRN Shortness 01/11/22 02/03/22 History aerosol inhaler Of Breath Or Wheezing oxycodone 5 mg tablet 5 mg PO Q6 PRN pain #12 tabs 01/27/22 02/03/22 Rx sodium chloride 7 % for 1 inh inhalation BID #240 mL 01/27/22 02/03/22 Rx nebulization (Hyper-Munir) aspirin 81 mg tablet 81 mg PO DAILY 02/03/22 02/03/22 History lorazepam 1 mg tablet (Ativan) 1 mg PO BID PRN anxiety 02/03/22 02/03/22 History Past Med/Surg History Medical History SARABJIT (acute kidney injury) High cholesterol HTN (hypertension), benign Renal colic on left side Surgical History (Updated 02/03/22 @ 18:07 by Sergio Sanchez MD) History of lumbar fusion Status post tracheostomy Family History Mother Hypertension Father Heart disease Social History Smoking Status: Never smoker Tobacco Type: Cigarettes Cigarettes Per Day: 1 pack; Hx Alcohol Use: Yes Alcohol type: hard liquor Hx Substance Use: No Preferred Language: Irish Communication Ability: Effective Visual Impairment: No Limitations Hearing Ability: Normal 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 Required: No Beliefs That Will Affect Care: None marital status: Current Living Situation: Alone current occupational status: employed current occupation: [employer] Feels Safe at Home: Yes Assistive Devices: None Review of Systems Review of Systems: All systems reviewed & are unremarkable except as noted in Subjective Physical Exam Physical Exam: Physical Exam: Vitals signs as noted above General Appearance:Obese, no apparent distress Head: normocephalic, Atraumatic Neck: +Trach , Right neck tender, swelling Eyes: normal inspection, EOMI Neck: supple, Trachea midline Respiratory/Chest: Normal breath sounds, CTA, No accessory muscle use Cardiovascular: S1, S2, No murmur Abdomen/GI:Soft, Non tender, Bowel sounds present Extremities/Musculoskeletal:normal inspection, no edema Neurologic/Psych:AAOX3, grossly no focal neurological deficits Skin: normal color, warm Results & Data Results & Data ([facility]) Vital Signs (Past 12 Hours) Vital Signs Temp Pulse Pulse Resp BP BP Pulse Ox 02/03/22 12:17 36.7 C 02/03/22 11:53 68 20 111/81 99 02/03/22 11:52 72 20 99 02/03/22 10:55 75 25 H 99 02/03/22 10:52 99 02/03/22 10:49 76 20 105/65 100 O2 Del Method O2 Flow Rate 02/03/22 12:17 02/03/22 11:53 Trach Collar 02/03/22 11:52 Trach Collar 02/03/22 10:55 Room Air 02/03/22 10:52 Room Air 0 02/03/22 10:49 Room Air Laboratory Results Short CBC 02/03/22 Range/Units 11:48 WBC 13.71 H (4.8-10.8) K/ul Hgb 13.7 L (14.0-18.0) g/dl Hct 40.7 (40.1-51.0) % Plt Count 404 H (130-400) K/uL BMP 02/03/22 11:48 Sodium 133 L Potassium 3.9 Chloride 99 Carbon Dioxide 24 BUN 16 Creatinine 1.11 Glucose 95 Calcium 9.8 Diagnostic Findings CXR: Cardiomegaly with no active disease in the chest. ECG Additional Comments: EKG: Normal sinus rhythm, left axis deviation, right bundle branch block, QTC 469
[2022-02-03] MEDS ORDERED: oxyCODONE HCL IR 5 MG TAB (IMMEDIATE RELEASE) ONE (13:37)
[2022-02-03] MEDS ORDERED: LORazepam 1 MG TAB ONE (15:30)
[2022-02-03] MEDS ORDERED: ALBUTEROL HFA 8 GM INHALER INH PRN (16:07)
[2022-02-03] MEDS ORDERED: POLYETHYLENE (MIRALAX) 17 GM PACK PO PRN (16:07)
[2022-02-03] MEDS ORDERED: PROMETHAZINE HCL 6.25 MG in SODIUM CHLORIDE 0.9% 50 ML IV PRN (16:07)
[2022-02-03] MEDS ORDERED: LORazepam 1 MG TAB PO PRN (16:07)
[2022-02-03] MEDS: oxyCODONE HCL IR 5 MG TAB (IMMEDIATE RELEASE) PO PRN (19:37)
[2022-02-03] MEDS: SODIUM CHLOR 7% 4 ML NEB INH SCH (20:06)
[2022-02-03] MEDS: LEVALBUTEROL HCL 0.63 MG/3 ML NEB NEB PRN (21:33)
[2022-02-03] MEDS: ACETAMINOPHEN 325 MG TAB PO PRN (22:53)
[2022-02-04] MEDS ORDERED: LORazepam 0.5 MG TAB PO STA (00:07)
[2022-02-04] MEDS: LEVALBUTEROL HCL 0.63 MG/3 ML NEB NEB PRN ×2 (02:03→07:12)
[2022-02-04] MEDS ORDERED: LORazepam 0.25 MG in SYRINGE 0 ML IV STA (02:27)
[2022-02-04] MEDS: oxyCODONE HCL IR 5 MG TAB (IMMEDIATE RELEASE) PO PRN (05:24)
[2022-02-04] MEDS: SODIUM CHLOR 7% 4 ML NEB INH SCH (07:12)
[2022-02-04 07:40] LABS: Basophils # (auto) 0.06 K/uL (0-0.2); Basophils % (auto) 0.5 %; Eosinophils # (auto) 0.15 K/uL (0-0.50); Eosinophils % (auto) 1.2 %; Hematocrit (blood only) 36.7 % (40.1-51.0); Hemoglobin 12.5 g/dl (14.0-18.0); Immature Granulocytes # (auto) 0.08 K/uL (0.00-0.02); Immature Granulocytes % (auto) 0.6 %; Lymphocytes # (auto) 1.88 K/uL (1.2-3.4); Mean Corpuscular Hemoglobin 27.7 pg (25.0-34.0); Mean Corpuscular Hgb Conc 34.1 g/dL (32.0-36.0); Mean Corpuscular Volume 81.4 fL (80.0-100.0); Mean Platelet Volume 10.4 fL (9.4-12.4); Monocytes # (auto) 0.94 K/uL (0.24-0.82); Monocytes % (auto) 7.5 %; Neutrophils # (auto) 9.41 K/uL (1.4-6.5); Neutrophils % (auto) 75.2 %; Platelet Count 384 K/uL (130-400); RDW Coefficient of Variation 13.8 % (11.5-14.5); RDW Standard Deviation 40.3 fL (36.4-46.3); Red Blood Count 4.51 M/uL (4.63-6.08); White Blood Count 12.52 K/ul (4.8-10.8)
[2022-02-04 07:59] LABS: BUN Creatinine Ratio 14.2 (10-20); Calcium 9.3 mg/dl (8.5-10.1); Creatinine Clr Calc Pharmacy 92.7 ml/min; Est GFR (Non-African American) 70.8 ml/min; Magnesium 1.9 mg/dl (1.7-2.4); Potassium 3.6 mmol/L (3.5-5.1)
--- NOTE | 2022-02-04 08:42 | Pulmonary Consultation ---
Date of Consultation February 04, 2022 Assessment & Plan (1) Status post tracheostomy: (2) Smoking: Plan Impression: 61-year-old male with recently diagnosed head neck cancer status post awake tracheostomy performed in [place]. He is admitted to due to the dryness in the airways. The initial report indicates wheezing and shortness of breath but the patient denies the symptoms. Again he feels that with humidification at home for his tracheostomy his issues would be resolved. Recommendations: 1. As the patient does not complain of any significant pulmonary issues such as cough shortness of breath wheezing, I do not think he requires additional pulmonary evaluation. Pulmonary function testing could be considered in the outpatient setting however with his tracheostomy, this is not feasible as he would be unable to perform the tests. He is not bronchospastic currently and I would not recommend inhalers antibiotics or steroids. 2. Tracheostomy: Patient is doing better with the medication. Recommend that his DME or whoever supplying his trach supplies at home to get in touch with him to get some passive humidification arranged for his tracheostomy. He can follow-up with his ENT. Patient does not have a pulmonary issue that requires inpatient evaluation at th is point time. Pulmonary will sign off. Feel free to contact us if we can be of additional assistance. The above recommendations and plan were discussed with the patient. Questions were answered to the best of my ability. He expressed understanding and is in agreement with the plan as outlined History of Present Illness Attending Physician: Natasha Leach, History of Present Illness Asked by hospitalist to assist in evaluation of this patient status post recent tracheostomy at [place] admitted with issues with his trach. History is obtained from discussion with the patient as well as review the electronic medical record. The patient is a 61-year-old male with a recent diagnosis of squamous cell carcinoma of the head and neck. He underwent awake tracheostomy in [place]. He is scheduled to undergo radical neck dissection sometime in the next few w eeks. Patient has been following with his ENT in the outpatient setting. He is complaining of dryness on the right side of his neck and issues with dryness from the tracheostomy. He does not have humidification at home. This prompted him to come to the emergency room. There is report in the chart of wheezing however the patient states that he is not having any wheezing or shortness of breath. His issues all stem from his tracheostomy. He is having no respiratory issues otherwise. He thinks that if he can get humidity for his tracheostomy his issues would resolve. The patient does have a history of tobacco abuse. He quit smoking a few weeks ago. Prior to that he has about a [id number] history. He is never been diagnosed with COPD. He does not use inhalers on a regular basis. Allergies Allergy/AdvReac Type Severity Reaction Status Date / Time No Known Allergies Allergy Verified 01/27/22 13:04 Home Medications Medication Instructions Recorded Confirmed Type atorvastatin 20 mg tablet 20 mg PO DAILY 11/17/20 02/03/22 History lisinopril 10 1 tab PO DAILY 11/17/20 02/03/22 History mg-hydrochlorothiazide 12.5 mg tablet escitalopram oxalate 10 mg tablet 10 mg PO QAM 06/20/21 02/03/22 History albuterol sulfate 90 mcg/actuation 2 puff inhalation Q4 PRN Shortness 01/11/22 02/03/22 History aerosol inhaler Of Breath Or Wheezing oxycodone 5 mg tablet 5 mg PO Q6 PRN pain #12 tabs 01/27/22 02/03/22 Rx sodium chloride 7 % for 1 inh inhalation BID #240 mL 01/27/22 02/03/22 Rx nebulization (Hyper-Munir) aspirin 81 mg tablet 81 mg PO DAILY 02/03/22 02/03/22 History lorazepam 1 mg tablet (Ativan) 1 mg PO BID PRN anxiety 02/03/22 02/03/22 History Patient History Medical History (Updated 02/04/22 @ 00:07 by Ricki Rainey) SARABJIT (acute kidney injury) High cholesterol HTN (hypertension), benign Renal colic on left side Surgical History (Updated 02/03/22 @ 18:07 by Sergio Sanchez MD) History of lumbar fusion Status post tracheostomy Family History Mother Hypertension Father Heart disease Social History Smoking Status: Current every day smoker Tobacco Type: Cigarettes Cigarettes Per Day: 1 pack; Do You Dip or Chew Tobacco: No; Hx Alcohol Use: Yes Alcohol type: hard liquor Hx Substance Use: No Preferred Language: Albanian Communication Ability: Effective Visual Impairment: No Limitations Hearing Ability: Normal [employer] Required: No Beliefs That Will Affect Care: None marital status: Current Living Situation: Alone current occupational status: employed current occupation: [employer] Feels Safe at Home: Yes Safety Concerns: Feels Safe At This Time Assistive Devices: Glasses and Oxygen - Continuous Review of Systems Review of Systems: All systems reviewed & are unremarkable except as noted in Subjective Physical Exam Constitutional: WD/WN, vitals as above Neck: Trach site clean dry and intact. No stridor Respiratory: normal respiratory effort, lungs clear to auscultation Cardiovascular: RRR, no murmur, no edema Gastrointestinal (Abdomen): normal bowel sounds, soft, nontender, no hepatosplenomegaly Musculoskeletal: Extremities: extremities normal to inspection Skin: no rashes, warm and dry Neurologic: Nonfocal exam Lymphatic: no cervical lymphadenopathy Results & Data Results & Data ([facility]) Vital Signs (Past 12 Hours) Vital Signs Temp Pulse Pulse Resp BP Pulse Ox O2 Del Method 02/04/22 08:20 36.4 C L 64 20 107/74 97 Room Air 02/04/22 07:15 66 20 98 Trach Collar 02/04/22 02:18 36.4 C L 93 H 20 125/77 99 Trach Collar 02/04/22 02:04 84 20 97 Trach Collar 02/03/22 22:24 60 02/03/22 23:00 36.4 C L 70 20 116/71 97 Room Air 02/03/22 22:15 84 20 97 High Flow Nasal Cannula 02/03/22 22:11 Trach Collar 02/03/22 22:11 36.7 C 71 18 115/73 100 Room Air O2 Flow Rate FiO2 02/04/22 08:20 02/04/22 07:15 10 40 02/04/22 02:18 02/04/22 02:04 28 02/03/22 22:24 02/03/22 23:00 02/03/22 22:15 5 21 02/03/22 22:11 10 02/03/22 22:11 Critical Care Results & Data Vital Signs (Past 12 Hours) Vital Signs Temp Pulse Pulse Resp BP Pulse Ox O2 Del Method 02/04/22 08:20 36.4 C L 64 20 107/74 97 Room Air 02/04/22 07:15 66 20 98 Trach Collar 02/04/22 02:18 36.4 C L 93 H 20 125/77 99 Trach Collar 02/04/22 02:04 84 20 97 Trach Collar 02/03/22 22:24 60 02/03/22 23:00 36.4 C L 70 20 116/71 97 Room Air 02/03/22 22:15 84 20 97 High Flow Nasal Cannula 02/03/22 22:11 Trach Collar 02/03/22 22:11 36.7 C 71 18 115/73 100 Room Air O2 Flow Rate FiO2 02/04/22 08:20 02/04/22 07:15 10 40 02/04/22 02:18 02/04/22 02:04 28 02/03/22 22:24 02/03/22 23:00 02/03/22 22:15 5 21 02/03/22 22:11 10 02/03/22 22:11 Lab & Micro Results (Past 24 Hours) RBC 4.51 M/uL (4.63-6.08) L 02/04/22 WBC 12.52 K/ul (4.8-10.8) H 02/04/22 Hgb 12.5 g/dl (14.0-18.0) L 02/04/22 Hct 36.7 % (40.1-51.0) L 02/04/22 MCV 81.4 fL (80.0-100.0) 02/04/22 MCH 27.7 pg (25.0-34.0) 02/04/22 MCHC 34.1 g/dL (32.0-36.0) 02/04/22 RDW Standard Deviation 40.3 fL (36.4-46.3) 02/04/22 RDW Coefficient of Variation 13.8 % (11.5-14.5) 02/04/22 Plt Count 384 K/uL (130-400) 02/04/22 MPV 10.4 fL (9.4-12.4) 02/04/22 Neutrophils (%) (Auto) 75.2 % 02/04/22 Lymphocytes (%) (Auto) 15.0 % 02/04/22 Monocytes # (Auto) 0.94 K/uL (0.24-0.82) H 02/04/22 Eosinophils # (Auto) 0.15 K/uL (0-0.50) 02/04/22 Immature Granulocyte % (Auto) 0.6 % 02/04/22 Neutrophils # (Auto) 9.41 K/uL (1.4-6.5) H 02/04/22 Lymphocytes # (Auto) 1.88 K/uL (1.2-3.4) 02/04/22 Monocytes # (Auto) 0.94 K/uL (0.24-0.82) H 02/04/22 Eosinophils # (Auto) 0.15 K/uL (0-0.50) 02/04/22 Basophils # (Auto) 0.06 K/uL (0-0.2) 02/04/22 Immature Granulocyte # (Auto) 0.08 K/uL (0.00-0.02) H 02/04 Na 131 mmol/L (136-145) L 02/04/22 K 3.6 mmol/L (3.5-5.1) 02/04/22 Cl 97 mmol/L (98-107) L 02/04/22 CO2 25 mmol/L (21-32) 02/04/22 Anion Gap 9 (3-11) 02/04/22 BUN 16 mg/dl (6-23) 02/04/22 Creatinine 1.13 mg/dl (0.6-1.4) 02/04/22 Estimated GFR ( Amer) 82.0 ml/min 02/04/22 Estimated GFR (Non-Af Amer) 70.8 ml/min 02/04/22 BUN/Creatinine Ratio 14.2 (10-20) 02/04/22 Glu 100 mg/dl (70-99(Fasting)) H 02/04/22 Ca 9.3 mg/dl (8.5-10.1) 02/04/22 Mg 1.9 mg/dl (1.7-2.4) 02/04/22 07:16 Calcium Level 9.3 mg/dl (8.5-10.1) 02/04/22 07:16 Diagnostic Findings (Past 24 Hours) Chest X-Ray 02/03/22 11:08 SINGLE VIEW CHEST CLINICAL HISTORY: Dyspnea. FINDINGS: An AP, portable, upright chest radiograph is compared to study dated 01/27/2022. A tracheostomy is in place. The heart is enlarged. The pulmonary vasculature is noncongestive. Chronic interstitial thickening is similar to previous. There is mild bibasilar atelectasis. The lungs and pleural spaces are otherwise clear. No pneumothorax is seen. The skeletal structures are osteopenic. The bony thorax is grossly intact. IMPRESSION: Cardiomegaly with no active disease in the chest. ACT 112: Negative or not required by law. Electronically signed by: Christ Allred M.D. 02/03/2022 11:31 AM I & O Totals 24 Hours 02/03/22 02/04/22 02/05/22 06:59 06:59 06:59 Intake Total 300 / 300 Balance 300 / 300 Cumulative 02/03/22 10:42 thru 02/04/22 06:21 Intake Total 300 Balance 300 RT Ventilator Mngmt (Last Documented) Ventilator Ordered Settings Respiratory Rate 20 02/04/22 08:20 Fraction of Inspired Oxygen 40 02/04/22 07:15 Ventilator - PT Measurements Respiratory Rate 20 PG Care Time/CCT Total # of Minutes Spent Total Time Spent with Patient: Total time spent is greater than 50% in coordination of care (as documented) at patient's floor/unit and/or counseling patient: Coding Level of Care Code 15274 Inpt Consult Level 4 Diagnoses Status post tracheostomy Z93.0 Smoking F17.200
[2022-02-04] MEDS: LISINOPRIL/HCTZ 10/12.5MG TAB PO SCH (09:24)
[2022-02-04] MEDS: ESCITALOPRAM OXALATE 10 MG TAB PO SCH (09:24)
[2022-02-04] MEDS: ASPIRIN 81 MG ECTAB PO SCH (09:24)
[2022-02-04] MEDS: ATORVASTATIN 20 MG TAB PO SCH (09:24)
[2022-02-04] MEDS: ENOXAPARIN INJ 40 MG/0.4 ML SYR SQ SCH (10:03)
--- NOTE | 2022-02-04 10:19 | Electrocardiogram Report ---
Test Reason : Blood Pressure : / mmHG Vent. Rate : 071 BPM Atrial Rate : 071 BPM P-R Int : 168 ms QRS Dur : 150 ms QT Int : 432 ms P-R-T Axes : 035 -30 015 degrees QTc Int : 469 ms Normal sinus rhythm Left axis deviation Right bundle branch block Possible Old Inferior infarct Abnormal ECG When compared with ECG of 27-JAN-2022 11:32, No significant change was found Confirmed by Fidel Sales ([id number]) on 02/04/2022 10:19:00 AM Referred By: REFERRED SELF Confirmed By:Fidel Sales
[2022-02-04] MEDS ORDERED: ALPRAZolam 0.5 MG TABLET PO PRN (12:02)
--- NOTE | 2022-02-04 15:55 | Hospitalist Progress Note ---
Date of Service February 04, 2022 Assessment & Plan (1) Anxiety: (2) Status post tracheostomy: Plan: Post tracheostomy anxiety with dry airway and increased cough Likely secondary to lack of humidification, patient hasn't gotten any sleep contributing to his anxiety Mild Compression due to neck mass likely contributing as well Planned for upcoming surgery in two weeks. Needs humidification system arranged prior to discharge [facility] is sending this to his house today Saturating well on room air Stop hypertonic saline nebs. Provided small amt of benzo if severe anxiety develops. Mild leukocytosis Likely reactive postsurgically No obvious source of infection Monitor Chronic hyponatremia Likely secondary to diuretics Monitor sodium levels Squamous cell cancer of hypopharynx Airway obstruction secondary to above S/P tracheostomy Plan for total laryngectomy and bilateral neck dissections with free flap reconstruct Pain control Follows with ENT as outpatient Hyperlipidemia chronic, stable, Continue statin Mood disorder chronic, stable. Continue escitalopram, Xanax prn severe uncontrolled anxiety Tobacco use disorder Currently not actively smoking as per patient Right popliteal artery aneurysm Follow-up as outpatient DVT Px: Lovenox SQ Code Status Full Code Admission and Anticipated Discharge Date Admission Date: February 03, 2022 Subjective 61-year-old man with squamous cell cancer of the neck who is recently status post tracheostomy. Presented with dryness in his airways causing irritation coughing and shortness of breath. He was supposed to receive a cool mist humidification device at home for his tracheostomy, however, logistics were unsuccessful. He was given hypertonic saline nebs but these have not helped much. Respiratory therapy has been working with him giving mist and blow-by for comfort and he is doing much better. Pulmonology saw patient and had no addit ional recommendations at this time. The patient has not wheezing or bronchospastic and inhalers, antibiotics or steroids are not recommended. Patient is significantly anxious and has been started on benzodiazepines as an outpatient, however, we discussed in detail that these types of medications are for anxiety disorders and he should start working on coping mechanisms to deal with his anxiety surrounding the trach instead of leaning on controlled substances that are highly addictive. They are there for his comfort if he is having a panic attack. He refused a continuous pulse oximeter which will help monitor his oxygen. His biggest fear is that he is not can to be able to breathe. He keeps trying to force sputum out of his trach and there is no additional mucus to expectorate. Respiratory therapy did attempt to suction but did not get much back either. There is no evidence of pneumonia. Ultimately the patient is very anxious about the trach and the dryness and coughing was cau sing him significant discomfort and worsening his anxiety. Review of Systems Review of Systems: All systems reviewed negative except as indicated above. Physical Exam Physical Exam: CONSTITUTIONAL: WNWD, vitals as above, generally well- appearing, slightly anxious EYES: normal conjunctivae, no scleral icterus ENT: external ear and nose normal NECK: trachea midline, +tracheostomy in place RESPIRATORY: clear to auscultation bilaterally, no crackles, rales or wheezes, normal respiratory effort CARDIOVASCULAR: regular rate and rhythm, S1 and 2 heard without murmurs, gallops or rubs, no JVD CHEST: inspection of chest was normal GASTROINTESTINAL: soft, nontender, ND, no guarding MUSCULOSKELETAL: strength 5/5 throughout, head is normocephalic and atraumatic SKIN: warm and dry NEUROLOGIC: CN 2-12 grossly intact, no sensory deficit, normal cognition, normal speech, no tremor PSYCHIATRIC: alert cooperative and oriented to person, place and time. Results & Data Results & Data ([facility]) Vital Signs (Past 12 Hours) Vital Signs Temp Pulse Pulse Resp BP Pulse Ox O2 Del Method 02/04/22 15:24 63 02/04/22 15:12 36.8 C 73 16 157/66 H 96 Room Air, Trach Collar 02/04/22 12:30 Trach Collar 02/04/22 11:23 20 97 Trach Collar 02/04/22 11:14 36.6 C 67 18 135/74 97 Room Air 02/04/22 10:35 62 02/04/22 10:25 79 24 95 Trach Collar 02/04/22 08:20 36.4 C L 64 20 107/74 97 Room Air 02/04/22 07:15 66 20 98 Trach Collar O2 Flow Rate FiO2 02/04/22 15:24 02/04/22 15:12 02/04/22 12:30 02/04/22 11:23 21 02/04/22 11:14 02/04/22 10:35 02/04/22 10:25 6 28 02/04/22 08:20 02/04/22 07:15 10 40 Laboratory Results Short CBC 02/04/22 Range/Units 07:16 WBC 12.52 H (4.8-10.8) K/ul Hgb 12.5 L (14.0-18.0) g/dl Hct 36.7 L (40.1-51.0) % Plt Count 384 (130-400) K/uL [facility] 02/04/22 07:16 Sodium 131 L Potassium 3.6 Chloride 97 L Carbon Dioxide 25 BUN 16 Creatinine 1.13 Glucose 100 H Calcium 9.3 Medications Administered Current Inpatient Medications Acetaminophen (Acetaminophen 325 Mg Tab) 650 mg PO Q4H PRN PRN Reason: pain/fever Stop: 03/05/22 16:06 Last Admin: 02/03/22 22:53 Dose: 650 mg Albuterol (Albuterol Hfa 8 Gm Inhaler) 2 puffs INH Q4R PRN PRN Reason: Shortness Of Breath Or Wheezing Stop: 03/05/22 16:06 Alprazolam (Alprazolam 0.5 Mg Tablet) 0.5 mg PO Q12H PRN PRN Reason: severe uncontrolled anxiety Stop: 03/06/22 12:01 Last Admin: 02/04/22 14:07 Dose: 0.5 mg Aspirin (Aspirin 81 Mg Ectab) 81 mg PO DAILY [facility] Stop: 03/06/22 08:59 Last Admin: 02/04/22 09:24 Dose: 81 mg Atorvastatin Calcium (Atorvastatin 20 Mg Tab) 20 mg PO DAILY [facility] Stop: 03/06/22 08:59 Last Admin: 02/04/22 09:24 Dose: 20 mg Enoxaparin Sodium (Enoxaparin Inj 40 Mg/0.4 Ml Syr) 40 mg SQ QAM [facility] Stop: 03/06/22 08:59 Last Admin: 02/04/22 10:03 Dose: 40 mg Escitalopram Oxalate (Escitalopram Oxalate 10 Mg Tab) 10 mg PO QAM [facility] Stop: 03/06/22 08:59 Last Admin: 02/04/22 09:24 Dose: 10 mg Lisinopril/HCTZ (Lisinopril/Hctz 10/12.5mg Tab) 1 tab PO DAILY [facility] Stop: 03/06/22 08:59 Last Admin: 02/04/22 09:24 Dose: 1 tab Promethazine HCl 6.25 mg/ (Sodium Chloride) 50.25 mls @ 201 mls/hr IV Q6H PRN PRN Reason: Nausea And Vomiting Stop: 03/05/22 16:06 Levalbuterol HCl (Levalbuterol Hcl 0.63 Mg/3 Ml Neb) 0.63 mg NEB Q6R PRN; Protocol PRN Reason: Shortness Of Breath Or Wheezing Stop: 03/05/22 18:59 Last Admin: 02/04/22 07:12 Dose: 0.63 mg Polyethylene Glycol (Polyethylene (Miralax) 17 Gm Pack) 17 gm PO DAILY PRN PRN Reason: Constipation Stop: 03/05/22 16:06
[2022-02-04] MEDS: ACETAMINOPHEN 325 MG TAB PO PRN (18:18)
[2022-02-04] MEDS ORDERED: MoRPHine SULFATE 2 MG/ML CARP IV STA (20:13)
[2022-02-05] MEDS: ATORVASTATIN 20 MG TAB PO SCH (08:37)
[2022-02-05] MEDS: ENOXAPARIN INJ 40 MG/0.4 ML SYR SQ SCH (08:37)
[2022-02-05] MEDS: ASPIRIN 81 MG ECTAB PO SCH (08:37)
[2022-02-05] MEDS: ESCITALOPRAM OXALATE 10 MG TAB PO SCH (08:37)
[2022-02-05] MEDS: LISINOPRIL/HCTZ 10/12.5MG TAB PO SCH (08:37)
--- NOTE | 2022-02-09 12:39 | Discharge Summary ---
Discharge Summary Date of Service February 05, 2022 Admission HPI Per Admitting Provider Patient is a 61-year-old male with history of squamous cell cancer of hypopharynx, tobacco use disorder, hypertension, hyperlipidemia, right popliteal artery aneurysm, airway obstruction S/P tracheostomy and other medical problems presents with history of shortness of breath, cough, insomnia which has been ongoing since tracheostomy by Dr. Sullivan on 01/20/2022 at [facility]. History is obtained from patient, also with patient's significant other at bedside. Patient was evaluated at [facility] for airway obstruction which was thought to be secondary to large hypopharyngeal mass noted to be on fiberoptic scope and so underwent awake tracheostomy, direct laryngoscopy with biopsies. Patient states that since after the procedure patient has been having shortness of breath, cough, insomnia which she attributes to having dry throat/irritation secondary to tracheostomy. He was prescribed humidification supplies but was unable to obtain them due to holidays. He was evaluated by ENT Dr. Tee on 02/01/2022 for the same. He has been using heat moisture exchange but lacks supplies to humidification system. He wasted ED 2 days ago and was prescribed hypertonic saline nebs which only temporarily helps. He was planned for total laryngectomy and bilateral neck dissections with free flap reconstruction. Patient also states that he change the inner cannula this morning but feels inability to catch his breath. He was placed on humidified oxygen while in ED which helped with the symptoms. Denies any history of chest pain, palpitations, dizziness, pedal edema, hemoptysis, fever, chills, headache, change in vision, nausea, vomiting, abdominal pain, diarrhea, dysuria, hematuria. He complains of right sided neck pain which she attributes to the tumor which is 8/10 intensity, nonradiating and controlled with pain medications. Principal Dx & Hospital Course #1 = Principal Diagnosis (1) Anxiety: (2) Status post tracheostomy: Post tracheostomy anxiety with dry airway and increased cough Likely secondary to lack of humidification, patient hasn't gotten any sleep contributing to his anxiety Mild Compression due to neck mass likely contributing as well Planned for upcoming surgery in two weeks. Needs humidification system arranged prior to discharge [facility] is sending this to his house today Saturating well on room air Stop hypertonic saline nebs. Provided small amt of benzo if severe anxiety develops. Mild leukocytosis Likely reactive postsurgically No obvious source of infection Monitor Chronic hyponatremia Likely secondary to diuretics Monitor sodium levels Squamous cell cancer of hypopharynx Airway obstruction secondary to above S/P tracheostomy Plan for total laryngectomy and bilateral neck dissections with free flap reconstruct Pain control Follows with ENT as outpatient Hyperlipidemia chronic, stable, Continue statin Mood disorder chronic, stable. Continue escitalopram, Xanax prn severe uncontrolled anxiety Tobacco use disorder Currently not actively smoking as per patient Right popliteal artery aneurysm Follow-up as outpatient DVT Px: Lovenox SQ Code Status Full Code Updated Medication List Medication Instructions Recorded Confirmed Type atorvastatin 20 mg tablet 20 mg PO DAILY 11/17/20 02/03/22 History lisinopril 10 1 tab PO DAILY 11/17/20 02/03/22 History mg-hydrochlorothiazide 12.5 mg tablet escitalopram oxalate 10 mg tablet 10 mg PO QAM 06/20/21 02/03/22 History albuterol sulfate 90 mcg/actuation 2 puff inhalation Q4 PRN Shortness 01/11/22 02/03/22 History aerosol inhaler Of Breath Or Wheezing oxycodone 5 mg tablet 5 mg PO Q6 PRN pain #12 tabs 01/27/22 02/03/22 Rx sodium chloride 7 % for 1 inh inhalation BID #240 mL 01/27/22 02/03/22 Rx nebulization (Hyper-Munir) aspirin 81 mg tablet 81 mg PO DAILY 02/03/22 02/03/22 History lorazepam 1 mg tablet (Ativan) 1 mg PO BID PRN anxiety 02/03/22 02/03/22 History Hospital Stay Data Consultations 02/03/22 12:25 ED Decision to Admit Stat 02/04/22 07:00 Consult Pulmonology Routine Pending Results Patient Have Any Pending Studies at Discharge: Yes Discharge Instructions Given to Patient (Per Discharging Provider) Please take all medications as instructed on discharge as below. It is recommended that you follow-up with Dr. Hernandez next week to ensure you are still doing well after leaving the hospital. It was a pleasure taking care of you! Please call if you have any questions or problems. You can reach a [facility] hospitalist on duty at [facility] 24 hours a day by calling [phone]. Take care of yourself. Natasha Leach DO [facility]
--- NOTE | 2022-02-09 14:19 | Discharge Summary ---
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 He was given outpatient hypertonic saline nebulizers but this has not helped much. He was admitted to the hospitalist service and respiratory therapy provided blow-by oxygen and humidification best. A chest x-ray was taken and was clear. Pulmonology was consulted and given the lack of wheezing or bronchial spasticity felt there were no additional recommendations they could offer at this time. Antibiotics and steroids were not recommended. The patient had an underlying significant anxiety and had recently been started on both benzodiazepines as an outpatient to manage this. He is looking forward to further treatment for his ongoing cancer. Prior to leaving the hospital his cool-mist humidifier was delivered, and his girlfriend brought this to the hospital where respiratory therapy walked him through how to hook it up. He remained on the machine for a couple of hours prior to feeling comfortable with going home. He was discharged in stable condition with close primary care follow-up recommended. Discharge Exam CONSTITUTIONAL: WNWD, vitals as above, generally well-appearing, NAD EYES: normal conjunctivae, no scleral icterus ENT: external ear and nose normal, NECK: trachea midline, tracheostomy in place, able to speak RESPIRATORY: clear to auscultation bilaterally, no crackles, rales or wheezes, normal respiratory effort CARDIOVASCULAR: regular rate and rhythm, S1 and 2 heard without murmurs, gall ops or rubs, no JVD, no peripheral edema CHEST: inspection of chest was normal GASTROINTESTINAL: soft, nontender, ND, no guarding MUSCULOSKELETAL: strength 5/5 throughout, head is normocephalic and atraumatic SKIN: warm and dry NEUROLOGIC: CN 2-12 grossly intact, no sensory deficit, normal cognition, normal speech, no tremor PSYCHIATRIC: alert cooperative and oriented to person, place and time. Updated Medication List Medication Instructions Recorded Confirmed Type atorvastatin 20 mg tablet 20 mg PO DAILY 11/17/20 02/03/22 History lisinopril 10 1 tab PO DAILY 11/17/20 02/03/22 History mg-hydrochlorothiazide 12.5 mg tablet escitalopram oxalate 10 mg tablet 10 mg PO QAM 06/20/21 02/03/22 History albuterol sulfate 90 mcg/actuation 2 puff inhalation Q4 PRN Shortness 01/11/22 02/03/22 History aerosol inhaler Of Breath Or Wheezing oxycodone 5 mg tablet 5 mg PO Q6 PRN pain #12 tabs 01/27/22 02/03/22 Rx sodium chloride 7 % for 1 inh inhalation BID #240 mL 01/27/22 02/03/22 Rx nebulization (Hyper-Munir) aspirin 81 mg tablet 81 mg PO DAILY 02/03/22 02/03/22 History lorazepam 1 mg tablet (Ativan) 1 mg PO BID PRN anxiety 02/03/22 02/03/22 History Hospital Stay Data Consultations 02/03/22 12:25 ED Decision to Admit Stat 02/04/22 07:00 Consult Pulmonology Routine Pending Results Patient Have Any Pending Studies at Discharge: Yes Discharge Instructions Given to Patient (Per Discharging Provider) Please take all medications as instructed on discharge as below. It is recommended that you follow-up with Dr. Strauss next week to ensure you are still doing well after leaving the hospital. It was a pleasure taking care of you! Please call if you have any questions or problems. You can reach a [facility] hospitalist on duty at [facility] 24 hours a day by calling [phone]. Take care of yourself. Natasha Leach, [facility] Total Time Total Time Spent Total Time Spent (In Minutes): 60
== END 2022-02-05 13:35 | disposition home health service (06) ==
LOC: ED 10:42 → EDINP 10:42 → SUATTDRO 13:23 → 2W 18:55
DX: Z79.82 Long term (current) use of aspirin; E78.5 Hyperlipidemia, unspecified; F17.210 Nicotine dependence, cigarettes, uncomplicated; C13.9 Malignant neoplasm of hypopharynx, unspecified; I72.4 Aneurysm of artery of lower extremity; F39 Unspecified mood [affective] disorder; Z79.899 Other long term (current) drug therapy; E87.1 Hypo-osmolality and hyponatremia; Z93.0 Tracheostomy status; F41.9 Anxiety disorder, unspecified